=== PATIENT | female | born 1935 | race Caucasian/White ===

== ENCOUNTER 2021-08-14 09:33 | Inpatient (IN) | payer MEDICARE, SELFPAY ==
[2021-08-14] VITALS (9 sets, daily range): BP systolic 108–208; BP diastolic 69–103; PULSE 52–88; RESP 14–18; TEMP 36.4–37.2; O2SAT 94–98; BMI 22.6
--- NOTE | 2021-08-14 09:43 | CT_ITS ---
WS: [id number] CT HEAD NONCONTRAST HISTORY: Symptoms of Acute Stroke TECHNIQUE: Contiguous axial imaging performed through the brain in 2.5 mm imaging. Bone and soft tiss ue windows. Sagittal and coronal reformats reviewed. All CT scans at [facility] use at least one of these dose optimization techniques: automated exposure control; mA and/or kV adjustment per pa tient size (includes targeted exams where dose is matched to clinical indication); or iterative recon struction. DLP: 805.23 mGy.cm COMPARISON: None available. No acute intracranial hemorrhage, midline shift or mass effect. Mild bilateral atrophy. There is also cerebellar atrophy. There are numerous lacunar infarcts bilater ally and small vessel ischemic disease. No area of sulcal effacement or acute infarct identified. Sma ll infarcts would be difficult to visualize amongst the chronic disease. There are also numerous lacu ankit infarcts in the insular ribbons bilaterally. Ventricles: Ventricles are mildly and diffusely dilated. Paranasal sinuses: As visualized are clear. Mastoid air cells: Well pneumatized. Calvarium and scalp: Skull is intact with no soft tissue edema or swelling. CT/CT head wo con* [id number] IMPRESSION: 1. No acute intracranial hemorrhage or edema. 2. 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 3. Mild ventriculomegaly. Notified Dr. Kolb at 08/14/2021 10:19 AM.
--- NOTE | 2021-08-14 09:43 | XR_ITS ---
WS: [id number] Portable AP semiupright chest, 08/14/2021 Clinical Data: cp Comparison: None. Findings: No nodules, masses or effusions are seen. The heart is normal. The aortic arch and descendi ng thoracic aorta show calcification and tortuosity. No pneumonia or pneumothorax is present. The pul monary vascularity is not increased. There is a dextroscoliosis of the thoracic spine. There are old right sixth or seventh rib fractures and old left fourth through ninth rib fractures. XR/XR chest 1V portable [id number] Impression: Atherosclerosis.
--- NOTE | 2021-08-14 09:43 | ECG_ITS ---
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 Measurements Intervals [place]bee Rate: 60 P: -2 NV: 171 QRS: 33 QRSD: 105 T: 267 QT: 449 QTc: 451 Interpretive Statements SINUS RHYTHM LEFT VENTRICULAR HYPERTROPHY AND ST-T CHANGE [VOLTAGE CRITERIA PLUS ST/T ABNORMALITY] POSSIBLE SEPTAL MYOCARDIAL INFARCTION , OF INDETERMINATE AGE [30 ms Q WAVE IN V1/V2] No previous ECG available for comparison Electronically Signed On 08-14-2021 16:17:14 CDT by Mora Salazar M.D. [id number]
--- NOTE | 2021-08-14 09:46 | W.ED.WEAKNES ---
Documented by User: Apurva Pandey 08/14/21 09:51 HPI - Weakness General: Chief complaint: Neuro Symptoms/Deficit Stated complaint: STROKE/ SLURRED SPEECH/ WEAKNESS Time Seen by Provider: 08/14/21 09:35 History of Present Illness: 86-year-old female patient presents to the emergency department with slurred speech and weakness to her right side. Patient states she is unable to ambulate due to her right leg weakness and right arm weakness. Patient states the symptoms started about 730 yesterday morning and have not improved. Patient states she has past medical history of TIA. Patient is not on any blood thinners. Patient denies any chest pain or shortness of breath. Patient denies any difficulty swallowing. Associated symptoms: Denies chest pain, chills, confusion, diaphoresis, dysuria, easy bruising, fever(s), headache(s), nausea, syncope or vomiting Review of Systems Narrative: Patient complains of right sided weakness in her upper and lower extremity. Patient complains of slurred speech Const: Denies: fever(s), chills, body aches, change in appetite, change in weight, fatigue, malaise or diaphoresis Eyes: Denies: change in vision, blurry vision, blind spots, photophobia, eye discomfort, eye discharge, eye redness, floaters or seeing flashes ENMT: Denies: throat pain, uvular edema, enlarged tonsils, odynophagia, hoarseness, mouth pain, swelling of lips/tongue, oral sores, bleeding gums, dental pain, dry mouth, ear or mastoid pain, ear discharge, change in hearing, tinnitus, disequilibrium, nasal discharge, nasal congestion, post nasal drip or sinus pain Card: Denies: chest pain, palpitations, irregular heart rhythm, edema, swelling of feet/ankles, lightheadedness, syncope, pre-syncope, dyspnea on exertion, orthopnea, leg pain with exertion or acrocyanosis Resp: Denies: dyspnea, productive cough, non-productive cough, wheezing, stridor, pain on inspiration, change in phlegm color, hemoptysis or chest congestion GI: Denies: abdominal pain, nausea, vomiting, hematemesis, dysphagia, diarrhea, constipation, GI cramping, change in bowel habits or rectal pain : Denies: flank pain, difficulty voiding, dysuria, urinary frequency, urinary urgency, urinary hesitancy or hematuria Musc: Denies: neck pain, back pain, extremity pain, extremity swelling, joint pain, joint swelling, joint redness, joint warmth or deformity Skin/Breast: Denies: rash, pruritus, erythema, sores, new lesions, changes in skin color or dry skin Neuro: Denies: headache(s), sensory changes, lack of coordination, frequent falls, dizziness, vertigo, confusion, behavioral changes, difficulty communicating thoughts or seizure-like activity Psych: Denies: anxiety, depression, suicidal ideation or homicidal ideation Endo: Denies: polyuria, polydipsia, tired all the time, cold intolerance, excessive sweating, flushing, hot flashes or heat intolerance Albert/Lymph: Denies: easy bruising, easy bleeding, petechiae, purpura, enlarged lymph nodes or tender lymph nodes All/Imm: Denies: urticaria, throat swelling, tongue swelling, facial swelling, acute wheezing or itchy eyes PFSH ED PFSH: Medical History (Updated 08/14/21 @ 12:54 by Anna Bailey MD) HTN (hypertension) Smoker TIA (transient ischemic attack) Surgical History (Updated 08/14/21 @ 12:54 by Anna Bailey MD) H/O carotid endarterectomy Family History (Updated 08/14/21 @ 12:55 by Anna Bailey MD) Denies family history of Clotting disorder Cancer Social History Smoking and tobacco status: current every day smoker cigarettes Alcohol intake: never Substance/Drug Use: never Lives independently: Yes Physical Exam Const: COMMON NORMALS: no acute distress, average body habitus, patient oriented x3, no limitations, healthy appearing, alert and well nourished HENMT: COMMON NORMALS: normocephalic, atraumatic, hearing grossly normal bilaterally, external ears normal, EAC's normal, TM's normal bilaterally, Normal external nose present, moist oral mucous membranes, oropharynx normal and dentition normal HEAD & SCALP: normocephalic and atraumatic NOSE: Normal external nose present EXTERNAL EAR: Yes external ears normal EXTERNAL AUDITORY CANAL: EAC's normal TYMPANIC MEMBRANE: TM's normal bilaterally THROAT: no uvular edema Eye: COMMON NORMALS: Equal, round and reactive pupils present, EOMs intact bilaterally, conjunctivae normal and no scleral icterus CONJUNCTIVA: Yes conjunctivae normal PUPIL: Yes Equal, round and reactive pupils present Neck/C-Spine: COMMON NORMALS: full ROM, no lymphadenopathy, supple, no meningeal signs, no JVD, Thyroid normal and No carotid bruits THYROID: Thyroid normal Chest: COMMONS NORMALS: normal inspection of the chest and normal palpation of entire chest wall Cardio: COMMON NORMALS: no JVD, regular rate and regular rhythm RATE: regular rate RHYTHM: regular rhythm GI: COMMON NORMALS: Normal to inspection, nondistended, normoactive bowel sounds present, Soft to palpation and non-tender PALPATION: Yes Soft to palpation : COMMON NORMALS: Yes no CVA tenderness BLADDER/KIDNEY EXAM: Yes no CVA tenderness Back/Pelvis: COMMON NORMALS: no CVA tenderness, thoracic and lumbar spine normal to inspection, no thoracic nor lumbar tenderness and thoraco-lumbar ROM normal Neuro: COMMON NORMALS: patient oriented x3 SENSORIUM/ORIENTATION: Yes alert MENINGEAL SIGNS: Yes no meningeal signs CRANIAL NERVES: Yes CN VII (facial) Laterality: right COORDINATION/BALANCE: No lvqsbi-dj-uics test normal, No uqso-nz-vcmx test normal and No tandem gait normal SPEECH: abnormal speech Details: slurred MOTOR EXAM: Pronator motor function present pronator drift of right upper extremity and Abnormal muscle tone present COORDINATION: jcxqnk-vg-ftel test abnormal, bzyq-nr-cbsw test abnormal and tandem gait abnormal Psych: COMMON NORMALS: mental status grossly normal, Normal thought process present, cooperative, normal affect, denies hallucinations, denies homicidal ideation and denies suicidal ideation THOUGHT PROCESS: Normal thought process present Course Vital Signs: Vital signs: Vital Signs Pulse Rate 66 08/14/21 09:42 Respiratory Rate 14 08/14/21 09:42 Blood Pressure 171/91 08/14/21 09:42 Pulse Oximetry 97 08/14/21 09:42 MDM - Weakness Lab Data : 08/14/21 10:13 08/14/21 10:13 Radiology Impressions Chest X-Ray 08/14/21 09:43 Impression: Atherosclerosis. Head CT 08/14/21 09:43 IMPRESSION: 1. No acute intracranial hemorrhage or edema. 2. 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 3. Mild ventriculomegaly. Notified Dr. Kolb at 08/14/2021 10:19 AM. Laboratory Results WBC 6.6 10^3/uL (4.0-10.0) 08/14/21 10:13 RBC 3.83 10^6/uL (4.1-5.3) L 08/14/21 10:13 Hgb 11.7 g/dL (11.5-15.3) 08/14/21 10:13 Hct 35.7 % (37.0-47.0) L 08/14/21 10:13 MCV 93.2 fl (81-99) 08/14/21 10:13 MCH 30.5 pg (28.0-34.0) 08/14/21 10:13 MCHC 32.8 g/dL (30.0-36.0) 08/14/21 10:13 RDW 12.9 % (12.1-15.1) 08/14/21 10:13 Plt Count 179 10^3/cmm (130-400) 08/14/21 10:13 MPV 9.5 fL (7.4-10.4) 08/14/21 10:13 Neut % (Auto) 67.1 % 08/14/21 10:13 Lymph % (Auto) 23.7 % 08/14/21 10:13 [place] % (Auto) 7.6 % 08/14/21 10:13 Eos % (Auto) 0.5 % 08/14/21 10:13 Baso % (Auto) 0.9 % 08/14/21 10:13 Neut # (Auto) 4.43 10^3/uL (1.8-7.7) 08/14/21 10:13 Lymph # (Auto) 1.6 10^3/uL (0.8-4.8) 08/14/21 10:13 [place] # (Auto) 0.5 10^3/uL (0.2-0.9) 08/14/21 10:13 Eos # (Auto) 0.0 10^3/uL (0.0-0.8) 08/14/21 10:13 Baso # (Auto) 0.1 10^3/uL (0.0-0.1) 08/14/21 10:13 Nucleated RBC % (auto) 0 % 08/14/21 10:13 Nucleated RBCs # 0.0 /100WBC 08/14/21 10:13 PT 14.50 SECONDS (12.1-14.9) 08/14/21 10:13 INR 1.09 (0.8-1.2) 08/14/21 10:13 APTT 33.7 SECONDS (23.9-36.7) 08/14/21 10:13 Sodium 138 mmol/L (136-145) 08/14/21 10:13 Potassium 2.7 mmol/L (3.5-5.1) L* 08/14/21 10:13 Chloride 99 mmol/L (98-107) 08/14/21 10:13 Carbon Dioxide 30 mmol/L (22-29) H 08/14/21 10:13 Anion Gap 11.7 (5-19) 08/14/21 10:13 BUN 9 mg/dL (8-23) 08/14/21 10:13 Creatinine 0.5 mg/dL (0.5-0.9) 08/14/21 10:13 GFR Calculation Not Reportable 08/14/21 10:13 Glucose 103 mg/dL (65-115) 08/14/21 10:13 POC Glucose 105 mg/dL (70-110) 08/14/21 10:11 Calculated Osmolality 285 mOsm/kg (285-295) 08/14/21 10:13 Calcium 8.8 mg/dL (8.5-10.5) 08/14/21 10:13 Total Bilirubin 0.5 mg/dL (0.15-1.2) 08/14/21 10:13 AST 15 U/L (0-32) 08/14/21 10:13 ALT 10 U/L (0-33) 08/14/21 10:13 Alkaline Phosphatase 82 IU/L (35-105) 08/14/21 10:13 Troponin T Baseline 20 ng/L (0-10) H 08/14/21 10:13 Total Protein 6.5 g/dL (6.6-8.7) L 08/14/21 10:13 Albumin 3.5 g/dL (3.5-5.2) 08/14/21 10:13 Globulin 3.0 g/dL (1.3-4.6) 08/14/21 10:13 Urine Color Yellow (Yellow) 08/14/21 11:08 Urine Appearance Hazy (CLEAR) A 08/14/21 11:08 Urine pH 6 (5-7) 08/14/21 11:08 Ur Specific [place] 1.015 (1.005-1.030) 08/14/21 11:08 Urine Protein Neg (Negative) 08/14/21 11:08 Urine Glucose (UA) Norm (Normal) 08/14/21 11:08 Urine Ketones Negative (Negative) 08/14/21 11:08 Urine Blood Neg (Negative) 08/14/21 11:08 Urine Nitrate Negative (Negative) 08/14/21 11:08 Urine Bilirubin Neg (Negative) 08/14/21 11:08 Urine Urobilinogen Norm mg/dL (Negative) 08/14/21 11:08 Ur Leukocyte Esterase Negative (Negative) 08/14/21 11:08 Discharge Plan Discharge Patient Disposition: Admitted As Inpatient Admit Provider: Anna Bailey Clinical Impression: Cerebrovascular accident, Hypokalemia Condition: Stable Coding Level of Care Code ED Buffing Line Set Up Worker for Chg Fwd Exam Comprehensive Documented by User: Barrington Kolb DO 08/14/21 12:59 HPI - Weakness General: Chief complaint: Neuro Symptoms/Deficit Stated complaint: STROKE/ SLURRED SPEECH/ WEAKNESS Time Seen by Provider: 08/14/21 09:35 PFS ED PFSH: Medical History (Updated 08/14/21 @ 12:54 by Anna Bailey MD) HTN (hypertension) Smoker TIA (transient ischemic attack) Surgical History (Updated 08/14/21 @ 12:54 by Anna Bailey MD) H/O carotid endarterectomy Family History (Updated 08/14/21 @ 12:55 by Anna Bailey MD) Denies family history of Clotting disorder Cancer Social History Smoking and tobacco status: current every day smoker cigarettes Alcohol intake: never Substance/Drug Use: never Lives independently: Yes Course Vital Signs: Vital signs: Vital Signs Pulse Rate 66 08/14/21 09:42 Respiratory Rate 14 08/14/21 09:42 Blood Pressure 171/91 08/14/21 09:42 Pulse Oximetry 97 08/14/21 09:42 MDM - Weakness Medical Decision Making Patient seen in conjunction with Apurva Bell. She is presenting with severe right-sided deficits that is quite dense including face right arm and leg with ataxia and dysarthria and some mild aphasia. Her stroke score is 13. Unfortunately she is out of any window for intervention. We will admit her for evaluation for secondary measures as well as therapy. Suspect patient will require rehab to recover. she is also significantly hypokalemic potassium supplement ordered. Discussed with family members. Orders written also discussed with hospitalist. Medical Records I reviewed the patient's medical records. Lab Data I reviewed the patient's lab results. : 08/14/21 10:13 08/14/21 10:13 Radiology Impressions Chest X-Ray 08/14/21 09:43 Impression: Atherosclerosis. Head CT 08/14/21 09:43 IMPRESSION: 1. No acute intracranial hemorrhage or edema. 2. 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 3. Mild ventriculomegaly. Notified Dr. Kolb at 08/14/2021 10:19 AM. Laboratory Results WBC 6.6 10^3/uL (4.0-10.0) 08/14/21 10:13 RBC 3.83 10^6/uL (4.1-5.3) L 08/14/21 10:13 Hgb 11.7 g/dL (11.5-15.3) 08/14/21 10:13 Hct 35.7 % (37.0-47.0) L 08/14/21 10:13 MCV 93.2 fl (81-99) 08/14/21 10:13 MCH 30.5 pg (28.0-34.0) 08/14/21 10:13 MCHC 32.8 g/dL (30.0-36.0) 08/14/21 10:13 RDW 12.9 % (12.1-15.1) 08/14/21 10:13 Plt Count 179 10^3/cmm (130-400) 08/14/21 10:13 MPV 9.5 fL (7.4-10.4) 08/14/21 10:13 Neut % (Auto) 67.1 % 08/14/21 10:13 Lymph % (Auto) 23.7 % 08/14/21 10:13 [place] % (Auto) 7.6 % 08/14/21 10:13 Eos % (Auto) 0.5 % 08/14/21 10:13 Baso % (Auto) 0.9 % 08/14/21 10:13 Neut # (Auto) 4.43 10^3/uL (1.8-7.7) 08/14/21 10:13 Lymph # (Auto) 1.6 10^3/uL (0.8-4.8) 08/14/21 10:13 [place] # (Auto) 0.5 10^3/uL (0.2-0.9) 08/14/21 10:13 Eos # (Auto) 0.0 10^3/uL (0.0-0.8) 08/14/21 10:13 Baso # (Auto) 0.1 10^3/uL (0.0-0.1) 08/14/21 10:13 Nucleated RBC % (auto) 0 % 08/14/21 10:13 Nucleated RBCs # 0.0 /100WBC 08/14/21 10:13 PT 14.50 SECONDS (12.1-14.9) 08/14/21 10:13 INR 1.09 (0.8-1.2) 08/14/21 10:13 APTT 33.7 SECONDS (23.9-36.7) 08/14/21 10:13 Sodium 138 mmol/L (136-145) 08/14/21 10:13 Potassium 2.7 mmol/L (3.5-5.1) L* 08/14/21 10:13 Chloride 99 mmol/L (98-107) 08/14/21 10:13 Carbon Dioxide 30 mmol/L (22-29) H 08/14/21 10:13 Anion Gap 11.7 (5-19) 08/14/21 10:13 BUN 9 mg/dL (8-23) 08/14/21 10:13 Creatinine 0.5 mg/dL (0.5-0.9) 08/14/21 10:13 GFR Calculation Not Reportable 08/14/21 10:13 Glucose 103 mg/dL (65-115) 08/14/21 10:13 POC Glucose 105 mg/dL (70-110) 08/14/21 10:11 Calculated Osmolality 285 mOsm/kg (285-295) 08/14/21 10:13 Calcium 8.8 mg/dL (8.5-10.5) 08/14/21 10:13 Total Bilirubin 0.5 mg/dL (0.15-1.2) 08/14/21 10:13 AST 15 U/L (0-32) 08/14/21 10:13 ALT 10 U/L (0-33) 08/14/21 10:13 Alkaline Phosphatase 82 IU/L (35-105) 08/14/21 10:13 Troponin T Baseline 20 ng/L (0-10) H 08/14/21 10:13 Total Protein 6.5 g/dL (6.6-8.7) L 08/14/21 10:13 Albumin 3.5 g/dL (3.5-5.2) 08/14/21 10:13 Globulin 3.0 g/dL (1.3-4.6) 08/14/21 10:13 Urine Color Yellow (Yellow) 08/14/21 11:08 Urine Appearance Hazy (CLEAR) A 08/14/21 11:08 Urine pH 6 (5-7) 08/14/21 11:08 Ur Specific [place] 1.015 (1.005-1.030) 08/14/21 11:08 Urine Protein Neg (Negative) 08/14/21 11:08 Urine Glucose (UA) Norm (Normal) 08/14/21 11:08 Urine Ketones Negative (Negative) 08/14/21 11:08 Urine Blood Neg (Negative) 08/14/21 11:08 Urine Nitrate Negative (Negative) 08/14/21 11:08 Urine Bilirubin Neg (Negative) 08/14/21 11:08 Urine Urobilinogen Norm mg/dL (Negative) 08/14/21 11:08 Ur Leukocyte Esterase Negative (Negative) 08/14/21 11:08 Discharge Plan Discharge Patient Disposition: Admitted As Inpatient Admit Provider: Anna Bailey Clinical Impression: Cerebrovascular accident, Hypokalemia Condition: Stable Coding Level of Care Code ED Buffing Line Set Up Worker for Sherry Fwnate Exam Comprehensive NIH stroke score NIHSS Level Of Consciousness - 1a: 0 Level Of Consciousness Questions - 1b: Both Correct Level Of Consciousness Commands - 1c: Both Correct Best Gaze - 2: Normal Visual Cui - 3: No Visual Loss Facial Palsy - 4: Partial Paralysis Motor Arm Right - 5: No Effort Against [place] Motor Arm Left - 5: No Drift Motor Leg Right - 6: No Effort Against [place] Motor Leg Left - 6: No Drift Limb Ataxia - 7: Present In Two Limbs Sensory - 8: Mild To Moderate Loss Best Language - 9: Mild/Moderate Aphasia Dysarthia - 10: Mild/Moderate Dysarthia Extinction And Inattention - 11: 0 Score Total Score: 13
--- NOTE | 2021-08-14 10:17 | PC.NURSE ---
pt placed on continuous spo2, nibp, and cm.
--- NOTE | 2021-08-14 10:17 | PC.NURSE ---
pt is npo. pt hob placed oat greater than 30 degrees.
[2021-08-14 10:34] LABS: Basophils # 0.1 10^3/uL (0.0-0.1); Basophils % 0.9 %; Eosinophils % 0.5 %; Hematocrit 35.7 % (37.0-47.0); Hemoglobin 11.7 g/dL (11.5-15.3); Lymphocytes # 1.6 10^3/uL (0.8-4.8); Lymphocytes % 23.7 %; Mean Corpuscular HGB Conc 32.8 g/dL (30.0-36.0); Mean Corpuscular Hemoglobin 30.5 pg (28.0-34.0); Mean Corpuscular Volume 93.2 fl (81-99); Mean Platelet Volume 9.5 fL (7.4-10.4); Monocytes # 0.5 10^3/uL (0.2-0.9); Monocytes % 7.6 %; Neutrophils # 4.43 10^3/uL (1.8-7.7); Neutrophils % 67.1 %; Nucleated Red Blood Cells % 0 %; Platelet Count 179 10^3/cmm (130-400); Red Blood Count 3.83 10^6/uL (4.1-5.3); Red Cell Distribution Width 12.9 % (12.1-15.1); White Blood Count 6.6 10^3/uL (4.0-10.0)
[2021-08-14 10:34] LABS: Glucose Point of Care 105 mg/dL (70-110)
[2021-08-14 10:52] LABS: INR 1.09 (0.8-1.2)
[2021-08-14 10:53] LABS: Partial Thromboplastin Time 33.7 SECONDS (23.9-36.7)
[2021-08-14 10:54] LABS: Alanine Aminotransferase 10 U/L (0-33); Albumin Level 3.5 g/dL (3.5-5.2); Alkaline Phosphatase 82 IU/L (35-105); Anion Gap 11.7 (5-19); Aspartate Amino Transferase 15 U/L (0-32); Blood Urea Nitrogen 9 mg/dL (8-23); Calcium 8.8 mg/dL (8.5-10.5); Carbon Dioxide 30 mmol/L (22-29); Chloride 99 mmol/L (98-107); Creatinine Clr Calc Pharmacy 50.3942; Glucose 103 mg/dL (65-115); Osmolality Calculated 285 mOsm/kg (285-295); Sodium 138 mmol/L (136-145); Total Bilirubin 0.5 mg/dL (0.15-1.2); Total Protein 6.5 g/dL (6.6-8.7)
[2021-08-14 10:55] LABS: Troponin(5th) Baseline 20 ng/L (0-10)
[2021-08-14 10:56] LABS: Potassium 2.7 mmol/L (3.5-5.1)
[2021-08-14 11:28] LABS: Add Urine Microscopic? NO; Charge for UA Resulting for Rev
--- NOTE | 2021-08-14 11:30 | PC.PHAR ---
PT UNABLE TO VERIFY MEDICATIONS-PTS FAMILY BROUGHT IN MEDICATION BOTTLES SOME DATED 12/31/2020 AND 11/21/2020-MEDICATIONS ENTERED ARE FROM THE MED BOTTLES BROUGHT IN AND EXT MED HISTORY-PT STATES SHE USE TO TAKE A 81MG ASPIRIN BUT STATES NO LONGER TAKES- NOTES ARE MADE IN THE PHARMACY COMMENTS
[2021-08-14 11:42] LABS: Bilirubin Urine Neg (Negative); Blood Urine Neg (Negative); Glucose Urine UA Norm (Normal); Ketones Urine Negative (Negative); Leukocyte Esterase Urine Negative (Negative); Nitrate Urine Negative (Negative); Protein Urine Neg (Negative); Specific Gravity, Urine 1.015 (1.005-1.030); Urine Appearance Hazy (CLEAR); Urine Color Yellow (Yellow); Urobilinogen Urine Norm (Negative); pH Urine 6 (5-7)
--- NOTE | 2021-08-14 11:51 | W.ED.NEUROSD ---
HPI - Neuro Symptoms/Deficit General: Chief Complaint: Neuro Symptoms/Deficit Stated Complaint: STROKE/ SLURRED SPEECH/ WEAKNESS Time Seen by Provider: 08/14/21 09:35 Source: patient and family Mode of arrival: EMS History of Present Illness: 86-year-old female presents emergency room with right-sided weakness and slurred speech. Patient's deficits are profound and dense to have been present for the last 26 hours approximately. In questioning signs are with the patient today may have a been even longer than that they are assuming they began yesterday morning but there is no one that can confirm that she woke up normal and then developed the symptoms as possible they may have developed overnight they do believe to the best of her knowledge she was normal when she went to bed they are just unsure if the symptoms began after she woke up or not. Patient is not able to really categorize this for us. She denies any chest pain. She has significant dysarthria and mild aphasia. Her NIH score is 16. She is outside any window for thrombolytics or embolectomy. In talking to the patient and the son's evidently approximately week and half to 2 weeks ago she had a TIA and was seen at another local hospital. She has not been taking any antiplatelet therapy or statin at this point. Onset (ago): hour(s) (26) Location: speech, right face, right arm, right leg and ataxia History of same: No Severity: severe Quality: weak Relieving factors: none Exacerbating factors: none On Anticoagulants: No Associated symptoms: Deny chest pain, cough, diaphoresis, fevers/chills, headache(s), anorexia, malaise, nausea, seizures, short of breath, syncope, tingling, vertigo, vomiting or weakness Treatments Prior to Arrival: none Review of Systems Const: Denies: fever(s), chills, body aches, malaise or diaphoresis ENMT: Denies: throat pain, ear or mastoid pain, nasal discharge or nasal congestion Card: Denies: chest pain, palpitations, irregular heart rhythm, edema or syncope Resp: Denies: dyspnea, productive cough or non-productive cough GI: Denies: abdominal pain, nausea or vomiting : Denies: flank pain, difficulty voiding, dysuria, urinary frequency or urinary urgency Skin/Breast: Denies: rash or pruritus Neuro: Denies: headache(s) or vertigo PFS ED PFSH: Medical History HTN (hypertension) Smoker TIA (transient ischemic attack) Surgical History H/O carotid endarterectomy Family History Denies family history of Clotting disorder Cancer Social History Smoking and tobacco status: current every day smoker cigarettes Alcohol intake: never Substance/Drug Use: never Lives independently: Yes NIH stroke score NIHSS: Level Of Consciousness - 1a: 1 Level Of Consciousness Questions - 1b: One Correct Level Of Consciousness Commands - 1c: Both Correct Best Gaze - 2: Normal Visual Cui - 3: No Visual Loss Facial Palsy - 4: Partial Paralysis Motor Arm Right - 5: No Effort Against [place] Motor Arm Left - 5: No Drift Motor Leg Right - 6: No Effort Against [place] Motor Leg Left - 6: No Drift Limb Ataxia - 7: Present In Two Limbs Sensory - 8: Mild To Moderate Loss Best Language - 9: Mild/Moderate Aphasia Dysarthia - 10: Severe Dysarthia Extinction And Inattention - 11: 0 Score: Total Score: 16 Course Vital Signs: Vital signs: Vital Signs Temperature 99.2 F 08/15/21 15:08 Pulse Rate 76 08/15/21 15:08 Respiratory Rate 18 08/15/21 15:08 Blood Pressure 167/77 08/15/21 15:08 Pulse Oximetry 94 08/15/21 15:08 MDM - Neuro Symptoms/Deficit Medical Decision Making 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 Will admit for further evaluation and secondary prevention as well as initiation of therapies. Medical Records I reviewed the patient's medical records. Lab Data I reviewed the patient's lab results. : 08/14/21 10:13 08/15/21 04:15 Radiology Impressions Chest X-Ray 08/14/21 09:43 Impression: Atherosclerosis. Head CT 08/14/21 09:43 IMPRESSION: 1. No acute intracranial hemorrhage or edema. 2. 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 3. Mild ventriculomegaly. Notified Dr. Kolb at 08/14/2021 10:19 AM. Carotid Doppler Study 08/15/21 06:00 IMPRESSION: Elevated flow velocity within the distal left internal carotid artery that could reflect underlying stenosis between 50 and 69%; however, the ICA to CCA ratio is normal. Consider CTA to better characterize. REFERENCES: SRU CRITERIA. The degree of internal carotid artery stenosis is based on criteria defined by the Society of Radiologists in Ultrasound (SRU). Normal is no stenosis. Mild is less than 50% stenosis. Moderate is 50-69% stenosis. Severe is greater than 69% stenosis to near occlusion. Near occlusion is a markedly narrowed lumen. Total occlusion is no detectable patent lumen. 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 THIS REPORT CONTAINS FINDINGS THAT MAY BE CRITICAL TO PATIENT CARE. The findings were verbally communicated via telephone conference with ABIGAIL, IMPRESSION: Bilateral carotid endarterectomy. Moderate stenosis at the origin of the right internal carotid artery. COMMENTS: Consistent with the [employer]'s Incidental Findings Committee white paper (J Am Andrea Radiol 2015): In patients aged 35 years and older with an incidental thyroid nodule equal to or greater than 1.[address], MRI or extrathyroidal US, further evaluation with dedicated thyroid US is recommended for patients with normal life expectancy and without comorbidities. For smaller nodules without suspicious features, no further evaluation or follow up is recommended. REFERENCES: NASCET CRITERIA. The degree of internal carotid artery stenosis is based on NASCET criteria. Normal is no stenosis. Mild is less than 50% stenosis. Moderate is 50-69% stenosis. Severe is 70% to 99% stenosis. Total occlusion is no detectable patent lumen. Laboratory Results WBC 6.6 10^3/uL (4.0-10.0) 08/14/21 10:13 RBC 3.83 10^6/uL (4.1-5.3) L 08/14/21 10:13 Hgb 11.7 g/dL (11.5-15.3) 08/14/21 10:13 Hct 35.7 % (37.0-47.0) L 08/14/21 10:13 MCV 93.2 fl (81-99) 08/14/21 10:13 MCH 30.5 pg (28.0-34.0) 05/20/22 10:13 MCHC 32.8 g/dL (30.0-36.0) 08/14/21 10:13 RDW 12.9 % (12.1-15.1) 08/14/21 10:13 Plt Count 179 10^3/cmm (130-400) 08/14/21 10:13 MPV 9.5 fL (7.4-10.4) 08/14/21 10:13 Neut % (Auto) 67.1 % 08/14/21 10:13 Lymph % (Auto) 23.7 % 08/14/21 10:13 [place] % (Auto) 7.6 % 08/14/21 10:13 Eos % (Auto) 0.5 % 08/14/21 10:13 Baso % (Auto) 0.9 % 08/14/21 10:13 Neut # (Auto) 4.43 10^3/uL (1.8-7.7) 08/14/21 10:13 Lymph # (Auto) 1.6 10^3/uL (0.8-4.8) 08/14/21 10:13 [place] # (Auto) 0.5 10^3/uL (0.2-0.9) 08/14/21 10:13 Eos # (Auto) 0.0 10^3/uL (0.0-0.8) 08/14/21 10:13 Baso # (Auto) 0.1 10^3/uL (0.0-0.1) 08/14/21 10:13 Nucleated RBC % (auto) 0 % 08/14/21 10:13 Nucleated RBCs # 0.0 /100WBC 08/14/21 10:13 PT 14.50 SECONDS (12.1-14.9) 08/14/21 10:13 INR 1.09 (0.8-1.2) 08/14/21 10:13 APTT 33.7 SECONDS (23.9-36.7) 08/14/21 10:13 Sodium 138 mmol/L (136-145) 08/14/21 10:13 Potassium 2.7 mmol/L (3.5-5.1) L* 08/14/21 10:13 Chloride 99 mmol/L (98-107) 08/14/21 10:13 Carbon Dioxide 30 mmol/L (22-29) H 08/14/21 10:13 Anion Gap 11.7 (5-19) 08/14/21 10:13 BUN 9 mg/dL (8-23) 08/14/21 10:13 Creatinine 0.5 mg/dL (0.5-0.9) 08/14/21 10:13 GFR Calculation Not Reportable 08/14/21 10:13 Glucose 103 mg/dL (65-115) 08/14/21 10:13 POC Glucose 105 mg/dL (70-110) 08/14/21 10:11 Calculated Osmolality 285 mOsm/kg (285-295) 08/14/21 10:13 Calcium 8.8 mg/dL (8.5-10.5) 08/14/21 10:13 Total Bilirubin 0.5 mg/dL (0.15-1.2) 08/14/21 10:13 AST 15 U/L (0-32) 08/14/21 10:13 ALT 10 U/L (0-33) 08/14/21 10:13 Alkaline Phosphatase 82 IU/L (35-105) 08/14/21 10:13 Troponin T Baseline 20 ng/L (0-10) H 08/14/21 10:13 Troponin T 120 Minute 19.04 ng/L (0-10) H 08/14/21 12:13 Delta Troponin T -0.96 ABS# (0-10) L 08/14/21 12:13 Total Protein 6.5 g/dL (6.6-8.7) L 08/14/21 10:13 Albumin 3.5 g/dL (3.5-5.2) 08/14/21 10:13 Globulin 3.0 g/dL (1.3-4.6) 08/14/21 10:13 Urine Color Yellow (Yellow) 08/14/21 11:08 Urine Appearance Hazy (CLEAR) A 08/14/21 11:08 Urine pH 6 (5-7) 08/14/21 11:08 Ur Specific [place] 1.015 (1.005-1.030) 08/14/21 11:08 Urine Protein Neg (Negative) 08/14/21 11:08 Urine Glucose (UA) Norm (Normal) 08/14/21 11:08 Urine Ketones Negative (Negative) 08/14/21 11:08 Urine Blood Neg (Negative) 08/14/21 11:08 Urine Nitrate Negative (Negative) 08/14/21 11:08 Urine Bilirubin Neg (Negative) 08/14/21 11:08 Urine Urobilinogen Norm mg/dL (Negative) 08/14/21 11:08 Ur Leukocyte Esterase Negative (Negative) 08/14/21 11:08 Discharge Plan Discharge Patient Disposition: Admitted As Inpatient Admit Provider: Anna Bailey Clinical Impression: Cerebrovascular accident, Hypokalemia Condition: Stable Coding Level of Care Code 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
[2021-08-14] MEDS: potassium chloride premix 100 ML 50 MEQ IV (12:12)
[2021-08-14 12:43] LABS: Troponin 5 2HR 19.04 ng/L (0-10)
--- NOTE | 2021-08-14 12:46 | PC.NURSE ---
ATTEMPTED REPORT NURSE UNAVAILABLE.
[2021-08-14 12:47] LABS: Troponin 5 2HR Delta -0.96 ABS# (0-10)
--- NOTE | 2021-08-14 12:52 | PM.HP ---
Providers/Chief Complaint Admitting Physician: Anna Bailey MD Chief Complaint: STROKE/ SLURRED SPEECH/ WEAKNESS History of Present Illness Brianne Fajardo is a 86 year old female who lives alone presented today with chief complaint of facial droop and right-sided weakness. Sons are at the bedside who are stating that her symptoms were noted by her sister who lives across the street around 7:30 AM yesterday. Patient is endorsing waking up with these symptoms. She went to the bed day before yesterday without any symptoms. When her sister called her nephew's they noticed severe weakness of right side and facial droop and requested EMS. Patient is stating that she has been falling for last few months she is using cane for ambulation, she does have a helper at home who would visit her frequently. Her sister would cook for her. She is not endorsing loss of bladder or bowel control. She is denying chest pain, shortness of breath, fever, nausea and vomiting. In the ER and she has been diagnosed with acute CVA CT head unremarkable,NIH 11 Not a tPA candidate Hospice services requested to find her placement as she is unsafe to return home PT/OT/ST Review of Systems Const: Denies: fever(s) Eyes: Denies: change in vision ENMT: Denies: throat pain Card: Denies: chest pain Resp: Denies: dyspnea GI: Denies: abdominal pain : Denies: flank pain Musc: Denies: neck pain Skin/Breast: Denies: rash Neuro: Reports: weakness in extremities, difficulty walking, frequent falls and Slurred speech present Psych: Denies: anxiety Endo: Denies: polyuria Albert/Lymph: Denies: easy bruising Medications/Allergies Home Medications Medication Instructions Recorded Confirmed Last Taken Type diltiazem HCl 120 mg 120 mg PO DAILY 08/14/21 08/14/21 Unknown History capsule,extended release 24 hr hydrochlorothiazide 12.5 mg tablet 12.5 mg PO DAILY 08/14/21 08/14/21 Unknown History metoprolol succinate 100 mg 100 mg PO DAILY 08/14/21 08/14/21 Unknown History tablet,extended release 24 hr potassium chloride 20 mEq 20 meq PO DAILY 08/14/21 08/14/21 Unknown History tablet,extended release(part/cryst) sertraline 100 mg tablet 100 mg PO DAILY 08/14/21 08/14/21 Unknown History Allergies Allergy/AdvReac Type Severity Reaction Status Date / Time No Known Allergies Allergy Verified 08/14/21 11:26 PFSH Acute PFSH: Medical History (Updated 08/14/21 @ 12:54 by Anna Bailey MD) HTN (hypertension) Smoker TIA (transient ischemic attack) Surgical History (Updated 08/14/21 @ 12:54 by Anna Bailey MD) H/O carotid endarterectomy Family History (Updated 08/14/21 @ 12:55 by Anna Bailey MD) Denies family history of Clotting disorder Cancer Social History (Updated 08/14/21 @ 12:55 by Anna Bailey MD) Smoking and tobacco status: current every day smoker cigarettes Alcohol intake: never Substance/Drug Use: never Lives independently: Yes Vitals/I&O/Wt Last Vital Signs Pulse 66 08/14/21 09:42 Resp 14 08/14/21 09:42 BP 171/91 08/14/21 09:42 Pulse Ox 97 08/14/21 09:42 Weight last 48 hrs Weight 63.503 kg Physical Exam Narrative: Very pleasant cooperative female Left-sided facial droop She has no movement at all of right arm and right leg Sensations intact Hyperreflexia of right leg She is awake and alert She is not disoriented Sounds are at the bedside Pupils are symmetrical Able to protect her airways Satting well on room air S1, S2 Sinus bradycardia Looks dehydrated No abdominal tenderness Data : 08/14/21 10:13 08/14/21 10:13 A&P Assessment and plan (1) Cerebrovascular accident: Status: Acute (2) Hypokalemia: Status: Acute Plan Acute CVA CT head unremarkable I do not think MRI head would have any merit at this point, she is not a tPA candidate NIH 11 Lives alone and unsafe to return home like that, will request PT/OT/ST She will need short-term rehab Sounds are agreeable They would like her to go to a rehab near [place] start aspirin, high-dose statins and Plavix Hypertensive urgency: Allow permissive hypertension would treat blood pressure if greater than 180/90 mmHg, would use lisinopril, as needed hydralazine, add low-dose amlodipine Check hemoglobin A1c panel, lipid panel, no need to repeat labs for tomorrow Hypokalemia: Repleted Attestations Medical Necessity Statement*: Anticipating placement to rehab she might need more than 2 midnight Time Spent in Patient Care: 40mins Coding Level of Care Code 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
[2021-08-14] MEDS: hyDRALAzine 20 mg/mL INJ 1 mL 10 MG IVP (14:37)
--- NOTE | 2021-08-14 14:42 | PC.NURSE ---
PER DR. GROVES PT CAN BE TRANSPORTED AFTER SYSTOLIC BP IS LESS 200 AND DIAYSTOLIC IS LESS THAN 100. PT BP IS 197/93. PT IS IN NAD. PT DENIES ANY CO AT THIS TIME.
[2021-08-14] MEDS: potassium chloride oral liq 20 mEq/15 mL UDC 40 MEQ PO (15:47)
[2021-08-14] MEDS: amlodipine 10 mg Tablet PO (15:56)
[2021-08-14] MEDS: atorvastatin 40 mg Tablet PO (20:19)
[2021-08-15] VITALS (8 sets, daily range): BP systolic 158–169; BP diastolic 67–79; PULSE 69–80; RESP 16–19; TEMP 36.6–37.3; O2SAT 91–95
[2021-08-15 05:12] LABS: Estmated Average Glucose 97
[2021-08-15 05:17] LABS: Blood Urea Nitrogen 10 mg/dL (8-23); Calcium 7.9 mg/dL (8.5-10.5); Carbon Dioxide 28 mmol/L (22-29); Chloride 103 mmol/L (98-107); Creatinine Clr Calc Pharmacy 50.3942; Glucose 102 mg/dL (65-115); Osmolality Calculated 291 mOsm/kg (285-295); Sodium 141 mmol/L (136-145)
[2021-08-15 05:19] LABS: Chol HDL Ratio 4.47 mg/dL (0.0-4.40); Cholesterol 161 mg/dL (0-200); HDL Cholesterol 36 mg/dL (60-100); LDL Cholesterol Calculated 109 mg/dL (50-129); LDL HDL Ratio 3.03 RATIO (0.00-3.22); Triglycerides 79 mg/dL (0-150)
--- NOTE | 2021-08-15 06:00 | USCV_ITS ---
Scotty Brianne Age: 86 Gender: F : 1935 Exam Date: 08/15/2021 07:51 Ordering Phys: Barrington Kolb DO Technologist: Chencho Gonzáles Exam Location: [facility] – [place] Indication: cva BP: 132 / 75 HR: 74 Rhythm: Sinus Technical Quality: Adequate MEASUREMENTS (Male / Female) Normal Values 2D ECHO LV Diastolic Diameter PLAX 3.6 cm 4.2 - 5.9 / 3.9 - 5.3 cm LV Systolic Diameter PLAX 2.6 cm IVS Diastolic Thickness 1.1 cm 0.6 - 1.0 / 0.6 - 0.9 cm IVS Systolic Thickness 1.5 cm LVPW Diastolic Thickness 1.2 cm 0.6 - 1.0 / 0.6 - 0.9 cm LVPW Systolic Thickness 1.6 cm LVOT Diameter 2.0 cm LV Ejection Fraction 2D Teich 54.8 % LV Ejection Fraction MOD 2C 56.4 % LV Ejection Fraction 2C AL 59.2 % LA Diameter 2.8 cm Aorta at Sinotubular Diameter 2.9 cm IVC Diameter 1.5 cm M-MODE LV Diastolic Diameter MM 4.9 cm 4.2 - 5.9 / 3.9 - 5.3 cm LV Systolic Diameter MM 3.4 cm LV Ejection Fraction MM Teich 59.9 % IVS Diastolic Thickness MM 0.9 cm 0.6 - 1.0 / 0.6 - 0.9 cm IVS Systolic Thickness MM 1.3 cm LVPW Diastolic Thickness MM 1.2 cm 0.6 - 1.0 / 0.6 - 0.9 cm LVPW Systolic Thickness MM 1.6 cm RV Diastolic Diameter MM 1.0 cm Aortic Annulus Diameter 3.4 cm LA Ao Ratio MM 0.9 MV E Point Septal Separation 1.0 cm DOPPLER AV Peak Velocity 151.0 cm/s LVOT Peak Velocity 102.0 cm/s AV Area Cont Eq vti 2.3 cm squared AV Area Cont Eq pk 2.2 cm squared MV Area PHT 5.0 cm squared Mitral E to A Ratio 0.4 MV E' Velocity 25.5 cm/s Mitral E to MV E' Ratio 7.3 Mitral E to LV E' Lateral Ratio 6.6 Mitral E to LV E' Septal Ratio 8.5 TR Peak Velocity 135.7 cm/s TR Peak Gradient 7.4 mmHg PV Peak Velocity 126.0 cm/s FINDINGS Left Ventricle Normal left ventricular size. LV systolic function is normal with EF of 55-60%. No regional wall motion abnormalities. Grade 1 diastolic dysfunction Right Ventricle The right ventricle is normal in size and function. Right Atrium The right atrium is normal in size. Left Atrium The left atrium is normal in size Mitral Valve Structurally normal mitral valve without significant stenosis or prolapse. There is no mitral regurgitation. Aortic Valve Structurally normal aortic valve without significant sclerosis or stenosis. There is no aortic regurgitation. Tricuspid Valve Structurally normal tricuspid valve without significant stenosis. Trace tricuspid regurgitation. Insufficient TR jet to calculate RVSP Pulmonic Valve Not well visualized Pericardium Normal pericardium without effusion. Aorta Normal ascending aorta dimension. IVC CONCLUSIONS LV systolic function is normal with EF of 55-60% Grade 1 diastolic dysfunction Trace tricuspid regurgitation No comparison studies are available Randall Carballo MD (Electronically Signed) Final Date: 15 Aug 2021 10:30 S
--- NOTE | 2021-08-15 06:00 | USR_ITS ---
PROCEDURE INFORMATION: Exam: US Duplex Bilateral Extracranial Arteries, Carotid Arteries Exam date and time: 08/15/2021 8:06 AM Age: 86 years old Clinical indication: Alteration of consciousness; Transient alteration of awareness; Additional info: CVA TECHNIQUE: Imaging protocol: Real-time Duplex ultrasound scan of the bilateral carotid and vertebral arteries combining santiago scale, color Doppler and spectral waveform analysis. Bilateral exam. Exam focused on the carotid arteries. COMPARISON: CT head wo con* [id number] 08/14/2021 9:59 AM FINDINGS: There is moderate atherosclerotic plaque in the internal carotid arteries, bilaterally. RIGHT: The peak systolic velocity within the proximal common carotid artery is 99 cm/s. The peak systolic velocity within the mid common carotid artery is 99 cm/s. The peak systolic velocity within the distal common carotid artery is 93 cm/s. The peak systolic velocity within the proximal internal carotid artery is 79 cm/s. The peak systolic velocity within the mid internal carotid artery is 105 cm/s. The peak systolic velocity within the distal internal carotid artery is 111 cm/s. The peak systolic velocity within the vertebral artery is 46 cm/s. Anterograde blood flow is seen in the vertebral artery. The ICA to CCA ratio on the right is 1.1. LEFT: The peak systolic velocity within the proximal common carotid artery is 98 cm/s. The peak systolic velocity within the mid common carotid artery is 117 cm/s. The peak systolic velocity within the distal common carotid artery is 98 cm/s. The peak systolic velocity within the proximal internal carotid artery is 110 cm/s. The peak systolic velocity within the mid internal carotid artery is 104 cm/s. The peak systolic velocity within the distal internal carotid artery is 126 cm/s. The peak systolic velocity within the vertebral artery is 54 cm/s. Anterograde blood flow is seen in the vertebral artery. The ICA to CCA ratio on the left is 1.1. US/CV carotid duplex BI* [id number] IMPRESSION: Elevated flow velocity within the distal left internal carotid artery that could reflect underlying stenosis between 50 and 69%; however, the ICA to CCA ratio is normal. Consider CTA to better characterize. REFERENCES: SRU CRITERIA. The degree of internal carotid artery stenosis is based on criteria defined by the Society of Radiologists in Ultrasound (SRU). Normal is no stenosis. Mild is less than 50% stenosis. Moderate is 50-69% stenosis. Severe is greater than 69% stenosis to near occlusion. Near occlusion is a markedly narrowed lumen. Total occlusion is no detectable patent lumen.
[2021-08-15 06:41] LABS: Glucose Point of Care 108 mg/dL (70-110)
[2021-08-15] MEDS: lisinopril 10 mg Tablet PO (09:04)
[2021-08-15] MEDS: clopidogrel 75 mg Tablet PO (09:04)
[2021-08-15] MEDS: aspirin 81 mg EC Tablet PO (09:04)
[2021-08-15] MEDS: amlodipine 10 mg Tablet PO (09:04)
--- NOTE | 2021-08-15 10:49 | P.PN_ITS ---
Subjective Subjective: Awaiting OT and ST No overnight events Patient stating that last night she had. Diet she did not choke on food Awaiting placement Vitals/I&O/Wt Last Vital Signs Temp 98.6 F 08/15/21 07:42 Pulse 80 08/15/21 08:00 Resp 16 08/15/21 07:42 BP 167/76 08/15/21 07:42 Pulse Ox 92 08/15/21 08:00 08/14/21 08/15/21 08/15/21 22:59 06:59 14:59 Intake Total 360 / 460 600 / 1060 360 / 360 Output Total 0 / 0 Balance 360 / 460 600 / 1060 360 / 360 Weight last 48 hrs Weight 63.503 kg Physical Exam Narrative: Supine very pleasant cooperative female Left-sided facial droop Right-sided hemiplegia Hyperreflexia of right leg S1, S2 Hypertensive Afebrile Saturating on room air Abdomen soft Awake and alert oriented to time place and person Data : 08/14/21 10:13 08/15/21 04:15 A&P Assessment and plan (1) Cerebrovascular accident: Status: Acute (2) Hypokalemia: Status: Acute Plan Acute CVA Dense right-sided hemiplegia with left-sided facial drooping and slurred speech Patient is awaiting speech therapy and OT Appreciate PT recommendations She is awaiting short-term rehab placement Son was counseled to not let Brianne live alone Daughter is planning to come in today as well golf manager is aware Hypokalemia: Related to hydrochlorothiazide, potassium repleted Permissive hypertension I would only treat herwith IV medications if pressure if it is above 180/90 mmHg Full code Dysphagia diet Check potassium only tomorrow Attestations Medical Necessity Statement*: 30mins Time Spent in Patient Care: Continue medical management Coding Level of Care Code 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
--- NOTE | 2021-08-15 10:53 | CTR_ITS ---
PROCEDURE INFORMATION: Exam: CT Angiography Head With Contrast, Arteriography Exam date and time: 08/15/2021 2:09 PM Age: 86 years old Clinical indication: Speech disturbance and weakness; Prior surgery; Surgery date: 6+ months; Surgery type: Carotid endart; Patient HX: C/O slurred speech and R sdie weakness since yesterday am; Additional info: CVA TECHNIQUE: Imaging protocol: Computed tomography angiography of the head with contrast. Exam focused on the arteries. 3D rendering (Not supervised by radiologist): MIP and/or 3D reconstructed images were created by the technologist. Radiation optimization: All CT scans at this facility use at least one of these dose optimization techniques: automated exposure control; mA and/or kV adjustment per patient size (includes targeted exams where dose is matched to clinical indication); or iterative reconstruction. Contrast material: OMNI 300; Contrast volume: 50 ml; Contrast route: INTRAVENOUS (IV); COMPARISON: CT head wo con* [id number] 08/14/2021 9:59 AM RADIATION DOSE METRICS: Total DLP (mGy-cm): 1189.71 FINDINGS: ANTERIOR CIRCULATION: Right internal carotid artery: Unremarkable. Intracranial segment is patent with no significant stenosis. No aneurysm. Right middle cerebral artery: Unremarkable. No occlusion or significant stenosis. No aneurysm. Right anterior cerebral artery: Unremarkable. No occlusion or significant stenosis. No aneurysm. Left internal carotid artery: Nonocclusive thrombus seen within the cavernous portion of the left internal carotid artery as best noted on series 3, images 91-92 and series 603, image 59. No aneurysm. Left middle cerebral artery: Unremarkable. No occlusion or significant stenosis. No aneurysm. Left anterior cerebral artery: Unremarkable. No occlusion or significant stenosis. No aneurysm. POSTERIOR CIRCULATION: Right vertebral artery: Unremarkable. No occlusion or significant stenosis. No aneurysm. Left vertebral artery: Unremarkable. No occlusion or significant stenosis. No aneurysm. Basilar artery: Unremarkable. No occlusion or significant stenosis. No aneurysm. Right posterior cerebral artery: Unremarkable. No occlusion or significant stenosis. No aneurysm. Left posterior cerebral artery: Unremarkable. No occlusion or significant stenosis. No aneurysm. Brain: No definite mass, mass effect, or midline shift. Cerebral ventricles: No ventriculomegaly. Bones/joints: Unremarkable. No acute fracture. Soft tissues: Unremarkable. VADIM at 2:50 PM CDT on 08/15/2021. The findings were acknowledged and understood. PROCEDURE INFORMATION: Exam: CT Angiography Neck With Contrast Exam date and time: 08/15/2021 2:09 PM Age: 86 years old Clinical indication: Speech disturbance and weakness; Prior surgery; Surgery date: 6+ months; Surgery type: Carotid endart; Patient HX: C/O slurred speech and R sdie weakness since yesterday am; Additional info: CVA TECHNIQUE: Imaging protocol: Computed tomography angiography of the neck with contrast. 3D rendering (Not supervised by radiologist): MIP and/or 3D reconstructed images were created by the technologist. Radiation optimization: All CT scans at this facility use at least one of these dose optimization techniques: automated exposure control; mA and/or kV adjustment per patient size (includes targeted exams where dose is matched to clinical indication); or iterative reconstruction. Contrast material: OMNI 300; Contrast volume: 50 ml; Contrast route: INTRAVENOUS (IV); COMPARISON: US CV carotid duplex BI* [id number] 08/15/2021 8:06 AM RADIATION DOSE METRICS: Total DLP (mGy-cm): 1189.71 FINDINGS: Right common carotid artery: No stenosis. No dissection or occlusion. Right internal carotid artery: Post endarterectomy. 50% stenosis/narrowing of the origin of the internal carotid artery at the endarterectomy site. No dissection or occlusion. Right external carotid artery: No occlusion or stenosis of the origin. Left common carotid artery: No stenosis. No dissection or occlusion. Left internal carotid artery: Post endarterectomy. No stenosis of the extracranial segment. No dissection or occlusion. Left external carotid artery: No occlusion or stenosis of the origin. Right vertebral artery: No stenosis. No dissection or occlusion. Left vertebral artery: No stenosis. No dissection or occlusion. Thyroid: 5 mm nodule noted in the right thyroid lobe. There is also a 7 mm nodule in the left thyroid lobe. Soft tissues: Normal. No significant soft tissue swelling. Bones/joints: No acute fracture. 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 THIS REPORT CONTAINS FINDINGS THAT MAY BE CRITICAL TO PATIENT CARE. The findings were verbally communicated via telephone conference with ABIGAIL, IMPRESSION: Bilateral carotid endarterectomy. Moderate stenosis at the origin of the right internal carotid artery. COMMENTS: Consistent with the [employer]'s Incidental Findings Committee white paper (J Am Andrea Radiol 2015): In patients aged 35 years and older with an incidental thyroid nodule equal to or greater than 1.[address], MRI or extrathyroidal US, further evaluation with dedicated thyroid US is recommended for patients with normal life expectancy and without comorbidities. For smaller nodules without suspicious features, no further evaluation or follow up is recommended. REFERENCES: NASCET CRITERIA. The degree of internal carotid artery stenosis is based on NASCET criteria. Normal is no stenosis. Mild is less than 50% stenosis. Moderate is 50-69% stenosis. Severe is 70% to 99% stenosis. Total occlusion is no detectable patent lumen.
[2021-08-15] MEDS: potassium chloride oral liq 20 mEq/15 mL UDC 40 MEQ PO (11:05)
[2021-08-15 11:59] LABS: Glucose Point of Care 119 mg/dL (70-110)
[2021-08-15] MEDS: nicotine 7 mg Patch 1 PATCH TRANSDERMA (12:57)
[2021-08-15] MEDS: iohexol 300 mg/mL 50 mL Btl IV (14:12)
[2021-08-15 16:52] LABS: Glucose Point of Care 101 mg/dL (70-110)
[2021-08-15 20:17] LABS: Glucose Point of Care 131 mg/dL (70-110)
[2021-08-15] MEDS: atorvastatin 40 mg Tablet PO (20:20)
[2021-08-16] VITALS (9 sets, daily range): BP systolic 143–167; BP diastolic 72–87; PULSE 68–81; RESP 16–20; TEMP 36.6–36.9; O2SAT 90–97
[2021-08-16 05:30] LABS: Potassium 2.9 mmol/L (3.5-5.1)
[2021-08-16] MEDS: potassium chloride oral liq 20 mEq/15 mL UDC 40 MEQ PO ×2 (05:48→07:03)
[2021-08-16] MEDS: enoxaparin 60 mg/0.6 mL Syringe SUBCUT ×2 (08:15→18:32)
[2021-08-16] MEDS: amlodipine 10 mg Tablet PO (08:16)
[2021-08-16] MEDS: clopidogrel 75 mg Tablet PO (08:16)
[2021-08-16] MEDS: aspirin 81 mg EC Tablet PO (08:17)
[2021-08-16] MEDS: lisinopril 10 mg Tablet PO (08:17)
[2021-08-16] MEDS: lidocaine 1% 5 ML in potassium chloride premix 100 ML 25 ML IV ×2 (08:19→12:30)
--- NOTE | 2021-08-16 09:25 | PM.PN ---
Subjective Subjective: 86-year-old female who carries history of TIA, carotid artery disease right-sided carotid endarterectomy 2013 presented 24-hour after her development of symptoms to the hospital with chief complaint of left-sided facial droop and right-sided weakness Echo unremarkable, CT head unremarkable, CTA head and neck showed left internal carotid thrombus which is nonocclusive within the cavernous portion of carotid artery. She presented 24 hours after her presentation, did not pursue embolectomy. Echo did not show any thrombus. She has remained in sinus rhythm. She is an active smoker, hypertensive. Lives alone. Awaiting care home placement, I have started her on therapeutic dose of Lovenox, will need Eliquis at the time of discharge, sons agree with the plan. No overnight events, permissive hypertension Afebrile She is on modified diet Vitals/I&O/Wt Last Vital Signs Temp 97.9 F 08/16/21 07:14 Pulse 70 08/16/21 08:00 Resp 18 08/16/21 07:14 BP 157/73 08/16/21 07:14 Pulse Ox 95 08/16/21 08:00 08/15/21 08/16/21 08/16/21 22:59 06:59 14:59 Intake Total 60 / 540 210 / 750 Balance 60 / 540 210 / 750 Weight last 48 hrs Weight 63.503 kg Physical Exam Narrative: Very pleasant cooperative female Left-sided facial droop Right-sided weakness Brief history at the bedside No overnight events S1, S2 Saturating well on room air He is awake and alert no signs of confusion No abdominal pain Data : 08/14/21 10:13 08/16/21 04:35 A&P Assessment and plan (1) Cerebrovascular accident: Status: Acute (2) Acute cerebrovascular accident (CVA) due to occlusion of left carotid artery: Status: Acute (3) Hypokalemia: Status: Acute Plan 86-year female presented with left-sided facial droop and right-sided weakness, lives alone, awaiting placement, left internal carotid thrombus Patient was not a tPA candidate nor a candidate for thromboembolectomy Acute ischemic CVA Therapeutic Lovenox started along Plavix, discontinue aspirin, continue statins Risk factors include previous history of TIA, right-sided carotid endarterectomy Active smoker Awaiting care home placement She is on modified dysphagia diet Echo unremarkable, I have not requested MRI head as it will not change my management plan, will request echo with bubble study , consider transesophageal echo for left ventricular thrombus? No signs of A. fib Would recommend discharge to care home on event monitor, therapeutic dose of Eliquis Permissive hypertension: Systolic blood pressure target 1 40-1 60s millimeters mercury Hypokalemia: Potassium repleted Check magnesium level. Modified dysphagia diet DVT prophylaxis sufficed with therapeutic Lovenox We will request venous Doppler Patient is full code Attestations Medical Necessity Statement*: Awaiting placement Time Spent in Patient Care: 35mins Coding Level of Care Code Acute Horse Race Timer for Chg Fwd Diagnoses Cerebrovascular accident I63.9 Acute cerebrovascular accident (CVA) due to occlusion of left carotid artery I63.232 Hypokalemia E87.6
--- NOTE | 2021-08-16 09:32 | USR_ITS ---
PROCEDURE INFORMATION: Exam: US Duplex Lower Extremity Veins, Bilateral Exam date and time: 08/16/2021 10:40 AM Age: 86 years old Clinical indication: Edema, localized; Lower extremity, bilateral; Additional info: Dvt TECHNIQUE: Imaging protocol: Real-time Duplex ultrasound of the bilateral extremities with 2-D santiago scale, color Doppler flow and spectral waveform analysis with image documentation. Complete exam focused on the bilateral lower extremity veins. COMPARISON: No relevant prior studies available. FINDINGS: Right deep veins: Unremarkable. The common femoral, femoral, proximal profunda femoral and popliteal veins are patent without thrombus. Normal Doppler waveforms. Normal compressibility and/or augmentation response. Right superficial veins: Saphenofemoral junction is patent without thrombus. Left deep veins: Unremarkable. The common femoral, femoral, proximal profunda femoral and popliteal veins are patent without thrombus. Normal Doppler waveforms. Normal compressibility and/or augmentation response. Left superficial veins: Saphenofemoral junction is patent without thrombus. Soft tissues: Unremarkable. US/CV venous duplex [facility] [id number] IMPRESSION: No evidence of deep vein thrombosis.
--- NOTE | 2021-08-16 09:32 | USCV_ITS ---
Brianne Fajardo Age: 86 Gender: F : 1935 Exam Date: 08/16/2021 10:52 Ordering Phys: Anna Bailey MD Technologist: Chencho Gonzáles Exam Location: [facility] [place] Indication: cva BP: / HR: Rhythm: Sinus Technical Quality: Good MEASUREMENTS (Male / Female) Normal Values FINDINGS Left Ventricle Right Ventricle Right Atrium Left Atrium Mitral Valve Aortic Valve Tricuspid Valve Pulmonic Valve Pericardium Aorta IVC CONCLUSIONS There is a limited echocardiogram performed to do bubble study. LV systolic function is normal with EF 55 to 60%. Bubble study is negative for intracardiac shunting. Randall Carballo MD (Electronically Signed) Final Date: 16 Aug 2021 18:49 S
[2021-08-16] MEDS: atorvastatin 40 mg Tablet PO (20:20)
[2021-08-17] VITALS (11 sets, daily range): BP systolic 131–162; BP diastolic 72–84; PULSE 66–74; RESP 16–22; TEMP 36.5–37.1; O2SAT 90–95
--- NOTE | 2021-08-17 04:34 | NUR.SHIFT ---
Alert and oriented with stable vs. No neurologic changes noted, oriented x4 with no complaints of discomfort. Right arm and leg flaccid with right facial droop. Speech slurred at times with extended conversation, patient gets tired. Bed bath provided to patient, incontinent, skin and radha care done, linens changed. IV in left wrist area flushed and intact.
[2021-08-17 04:52] LABS: Basophils % 0.6 %; Eosinophils # 0.2 10^3/uL (0.0-0.8); Eosinophils % 2.9 %; Hematocrit 38.4 % (37.0-47.0); Hemoglobin 12.1 g/dL (11.5-15.3); Lymphocytes # 1.1 10^3/uL (0.8-4.8); Lymphocytes % 16.2 %; Mean Corpuscular HGB Conc 31.5 g/dL (30.0-36.0); Mean Corpuscular Hemoglobin 30.5 pg (28.0-34.0); Mean Corpuscular Volume 96.7 fl (81-99); Mean Platelet Volume 9.9 fL (7.4-10.4); Monocytes # 0.5 10^3/uL (0.2-0.9); Monocytes % 7.4 %; Neutrophils % 72.6 %; Nucleated Red Blood Cells % 0 %; Platelet Count 152 10^3/cmm (130-400); Red Blood Count 3.97 10^6/uL (4.1-5.3); Red Cell Distribution Width 13.2 % (12.1-15.1); White Blood Count 6.6 10^3/uL (4.0-10.0)
[2021-08-17 05:06] LABS: Anion Gap 13.4 (5-19); Blood Urea Nitrogen 12 mg/dL (8-23); Calcium 8.1 mg/dL (8.5-10.5); Carbon Dioxide 24 mmol/L (22-29); Chloride 108 mmol/L (98-107); Glucose 94 mg/dL (65-115); Magnesium 1.8 mg/dL (1.7-2.3); Osmolality Calculated 292 mOsm/kg (285-295); Potassium 4.4 mmol/L (3.5-5.1); Sodium 141 mmol/L (136-145)
[2021-08-17 05:08] LABS: Creatinine Clr Calc Pharmacy 50.3942
[2021-08-17] MEDS: enoxaparin 60 mg/0.6 mL Syringe SUBCUT (06:31)
--- NOTE | 2021-08-17 07:41 | PC.SOCIAL ---
IMM Update Pg. 2 of IMM updated and reviewed with patient, who verbalized understanding. Copy provided.
[2021-08-17] MEDS: nicotine 7 mg Patch 1 PATCH TRANSDERMA (10:02)
[2021-08-17] MEDS: amlodipine 10 mg Tablet PO (10:02)
[2021-08-17] MEDS: lisinopril 10 mg Tablet PO (10:02)
[2021-08-17] MEDS: clopidogrel 75 mg Tablet PO (10:02)
--- NOTE | 2021-08-17 10:08 | PC.SLP ---
Therapist spoke with patient and family member. No concerns with patient's swallowing were reported. Family member did ask about nectar thickened liquids; therefore, education was provided. The therapist provided education regarding s/s of aspiration, and what to look for. Therapist encouraged patient/family member to inform nursing of any concerns.
--- NOTE | 2021-08-17 12:40 | PM.PN ---
Subjective Subjective: Patient was seen and examined this morning, working well with physical therapy, no acute events overnight. Medications: Medication Review Details: Generic Name Dose Route Start Last Admin Trade Name Mary Jane PRN Reason Stop Dose Admin Amlodipine Besylat e 10 mg 08/14/21 15:50 08/17/21 10:02 Amlodipine 10 Mg Tablet PO 10 mg DAILY EULALIA Administration Atorvastatin Calci um 40 mg 08/14/21 21:00 08/16/21 20:20 Atorvastatin 40 Mg Tablet PO 40 mg BEDTIME EULALIA Administration Clopidogrel Bisulf ate 75 mg 08/15/21 09:00 08/17/21 10:02 Clopidogrel 75 M g Tablet PO 75 mg DAILY EULALIA Administration Enoxaparin Sodium 60 mg 08/16/21 07:30 08/17/21 06:31 Enoxaparin 60 Mg /0.6 Ml Syringe SUBCUT 60 mg Q12H EULALIA Administration Lisinopril 10 mg 08/15/21 09:00 08/17/21 10:02 Lisinopril 10 Mg Tablet PO 10 mg DAILY EULALIA Administration Nicotine 1 patch 08/15/21 14:00 08/17/21 10:02 Nicotine 7 Mg Pa tc TRANSDERMA 1 patch DAILY EULALIA Administration Vitals/I&O/Wt Last Vital Signs Temp 98.7 F 08/17/21 12:00 Pulse 71 08/17/21 12:00 Resp 16 08/17/21 12:00 BP 138/84 08/17/21 12:00 Pulse Ox 90 08/17/21 12:00 08/16/21 08/17/21 08/17/21 22:59 06:59 14:59 Intake Total 345 / 809.583 240 / 240 Balance 345 / 809.583 240 / 240 Physical Exam Const: COMMON NORMALS: patient oriented x3 HENMT: COMMON NORMALS: normocephalic and atraumatic HEAD & SCALP: normocephalic and atraumatic Chest: CHEST: Yes Symmetrical chest wall rise Resp: COMMON NORMALS: clear to auscultation bilaterally EFFORT & INSPECTION: Yes symmetric chest movement AUSCULTATION: clear to auscultation bilaterally Cardio: COMMON NORMALS: regular rate, regular rhythm, S1 normal heart sound present, S2 normal heart sound present, No gallops present (Cardio), No murmurs present (Cardio), No rub (Cardio) and Peripheral pulses 2+ throughout RATE: regular rate RHYTHM: regular rhythm HEART SOUNDS: S1 normal heart sound present and S2 normal heart sound present PERIPHERAL PULSES: Peripheral pulses 2+ throughout GI: COMMON NORMALS: Normal to inspection, nondistended, normoactive bowel sounds present, Soft to palpation, non-tender, No hepatosplenomegaly present and no masses AUSCULTATION: Yes normoactive bowel sounds PALPATION: Yes Soft to palpation and Yes No hepatosplenomegaly present RECTAL EXAM: deferred Extremity: COMMON NORMALS: no clubbing, cyanosis or edema and no pedal edema NARRATIVE EXTREMITY EXAM: Right-sided weakness with left facial droop Neuro: COMMON NORMALS: patient oriented x3 Data : 08/17/21 04:22 08/17/21 04:22 A&P Assessment and plan (1) Cerebrovascular accident: Status: Acute (2) Acute cerebrovascular accident (CVA) due to occlusion of left carotid artery: Status: Acute (3) Hypokalemia: Status: Acute Plan 86-year female presented with past medical history of hypertension TIA chronic smoker presented with left-sided facial droop and right-sided weakness. Patient was not a tPA candidate nor a candidate for thromboembolectomy on admission. Acute ischemic CVA: CT head wo con:Numerous bilateral lacunar infarcts in the basal ganglia. CT angio headneck: Right internal carotid artery: Post endarterectomy. 50% stenosis/narrowing of the origin of the internal carotid artery at the endarterectomy site. No dissection or occlusion. CV carotid duplex BI: 2D Echo : LV systolic function is normal with EF of 55-60%,?Grade 1 diastolic dysfunction Trace tricuspid regurgitation. Negative bubble study. PT OT on board; Continue telemetry monitoring SPL evaluation done:on modified dysphagia diet Continue aspirin Plavix statin. Patient will need neurology as well as cardiology follow-up as an outpatient. We will discharge patient on event monitor for 3 weeks. [facility] #Hypertension: Continue lisinopril #History of TIA #DVT PPX : On Lovenox #CODE STATUS: Full code #Disposition : Awaiting group home Placement. Attestations Medical Necessity Statement*: [facility]wait[facility]. Coding Level of Care Code Acute Sales Representative [employer] Rope for Sherry Masters Diagnoses Cerebrovascular accident I63.9 Acute cerebrovascular accident (CVA) due to occlusion of left carotid artery I63.232 Hypokalemia E87.6
--- NOTE | 2021-08-17 13:52 | PC.SLP ---
Patient was given a variety of OMEs to increase strength/function of the tongue/lips. The patient required verbal and visual cues when completing the OMEs. The therapist also provided the patient with dysarthria strategies (over-articulation, practicing multisyllabic words, using longer pauses). The the therapist wrote these exercises/strategies down for the patient. The patient's son was present in the room.
[2021-08-17] MEDS: atorvastatin 40 mg Tablet PO (20:22)
[2021-08-18 03:27] VITALS: BP 151/72; PULSE 66; RESP 18; TEMP 36.8; O2SAT 92
[2021-08-18 05:26] LABS: Basophils # 0.1 10^3/uL (0.0-0.1); Basophils % 0.9 %; Eosinophils # 0.2 10^3/uL (0.0-0.8); Eosinophils % 3.1 %; Hematocrit 37.6 % (37.0-47.0); Hemoglobin 11.9 g/dL (11.5-15.3); Lymphocytes # 1.3 10^3/uL (0.8-4.8); Lymphocytes % 19.2 %; Mean Corpuscular HGB Conc 31.6 g/dL (30.0-36.0); Mean Corpuscular Hemoglobin 30.2 pg (28.0-34.0); Mean Corpuscular Volume 95.4 fl (81-99); Mean Platelet Volume 10.4 fL (7.4-10.4); Monocytes # 0.5 10^3/uL (0.2-0.9); Monocytes % 7.2 %; Neutrophils # 4.72 10^3/uL (1.8-7.7); Neutrophils % 69.3 %; Nucleated Red Blood Cells % 0 %; Platelet Count 173 10^3/cmm (130-400); Red Blood Count 3.94 10^6/uL (4.1-5.3); Red Cell Distribution Width 13.2 % (12.1-15.1); White Blood Count 6.8 10^3/uL (4.0-10.0)
[2021-08-18 05:55] LABS: Anion Gap 12.6 (5-19); Blood Urea Nitrogen 17 mg/dL (8-23); Calcium 8.5 mg/dL (8.5-10.5); Carbon Dioxide 23 mmol/L (22-29); Chloride 106 mmol/L (98-107); Glucose 83 mg/dL (65-115); Osmolality Calculated 287 mOsm/kg (285-295); Potassium 3.6 mmol/L (3.5-5.1); Sodium 138 mmol/L (136-145)
[2021-08-18 05:58] LABS: Creatinine Clr Calc Pharmacy 50.3942
[2021-08-18 06:00] VITALS: PULSE 68
[2021-08-18 08:00] VITALS: BP 167/74; PULSE 62; RESP 15; O2SAT 93
[2021-08-18] MEDS: nicotine 7 mg Patch 1 PATCH TRANSDERMA (09:51)
[2021-08-18] MEDS: lisinopril 10 mg Tablet PO (09:51)
[2021-08-18] MEDS: clopidogrel 75 mg Tablet PO (09:51)
[2021-08-18] MEDS: aspirin 81 mg EC Tablet PO (09:51)
[2021-08-18] MEDS: enoxaparin 40 mg/0.4 mL Syringe SUBCUT (09:51)
[2021-08-18] MEDS: amlodipine 10 mg Tablet PO (09:51)
--- NOTE | 2021-08-18 10:17 | P.DS_ITS ---
Discharge Providers Date of Admission: 08/14/21 14:17 Date of Discharge: August 18, 2021 Attending Provider at Admission: nAna Bailey MD Attending Provider at Discharge: Daryl Ro MD Diagnoses at Discharge Discharge Diagnosis (1) Cerebrovascular accident: Status: Acute (2) Acute cerebrovascular accident (CVA) due to occlusion of left carotid artery: Status: Acute (3) Hypokalemia: Status: Acute Reason for Visit Reason for Visit: STROKE/ SLURRED SPEECH/ WEAKNESS Hospital Course Hospital Course 86-year female presented with past medical history of hypertension TIA chronic smoker presented with left-sided facial droop and right-sided weakness. C was admitted for the management of acute ischemic CVA: Patient was not a tPA candidate nor a candidate for thromboembolectomy on admission.CT head wo con:Numerous bilateral lacunar infarcts in the basal ganglia. CT angio headneck: Right internal carotid artery: Post endarterectomy. 50% stenosis/narrowing of the origin of the internal carotid artery at the endarterectomy site. No dissection or occlusion. 2D Echo : LV systolic function is normal with EF of 55-60%,?Grade 1 diastolic dysfunction Trace tricuspid regurgitation. Negative bubble study. She was kept on Plavix, therapeutic anticoagulation with Lovenox, starting, permissive hypertension, therapeutic anticoagulation has been discontinued on discharge, given age and high fall risk, she is being discharged on aspirin Plavix statin. She is also being discharged on 3 weeks event monitor. During the hospital stay routine stroke care was exercised (PT/OT, SPL. ) She was kept on telemetry monitoring: Which failed to show any significant arrhythmia. For hypertension: Cardizem hydrochlorothiazide has been resumed, dose of metoprolol succinate has been decreased to 25 mg p.o. daily from 100 MG.She will follow with primary care physician neurology as well as cardiology as an outpatient. Overall patient has responded well to above medical management and she is being discharged in stable condition to rehab for further recovery. Physical Exam Const: COMMON NORMALS: patient oriented x3 HENMT: COMMON NORMALS: normocephalic and atraumatic HEAD & SCALP: normocephalic and atraumatic Chest: CHEST: Yes Symmetrical chest wall rise Resp: COMMON NORMALS: clear to auscultation bilaterally EFFORT & INSPECTION: Yes symmetric chest movement AUSCULTATION: clear to auscultation bilaterally Cardio: COMMON NORMALS: regular rate, regular rhythm, S1 normal heart sound present, S2 normal heart sound present, No gallops present (Cardio), No murmurs present (Cardio), No rub (Cardio) and Peripheral pulses 2+ throughout RATE: regular rate RHYTHM: regular rhythm HEART SOUNDS: S1 normal heart sound present and S2 normal heart sound present PERIPHERAL PULSES: Peripheral pulses 2+ throughout GI: COMMON NORMALS: Normal to inspection, nondistended, normoactive bowel sounds present, Soft to palpation, non-tender, No hepatosplenomegaly present and no masses AUSCULTATION: Yes normoactive bowel sounds PALPATION: Yes Soft to palpation and Yes No hepatosplenomegaly present RECTAL EXAM: deferred Extremity: COMMON NORMALS: no clubbing, cyanosis or edema and no pedal edema NARRATIVE EXTREMITY EXAM: Right-sided weakness with left facial droop Neuro: COMMON NORMALS: patient oriented x3 Discharge Data Studies Completed and Pending Completed Studies During Hospitalization Category Date Time Status CT head wo con* [id number] Stat Cat Scan 08/14/21 09:43 Completed CTA head neck [CT angio headneck* [id number]] Routine Cat Scan 08/15/21 10:53 Completed XR chest 1V portable [id number] Stat Exams 08/14/21 09:43 Completed CV carotid duplex BI* [id number] Routine Ultrasound 08/15/21 06:00 [place] [id number] Routine Ultrasound 08/16/21 09:32 Completed CV. echo complete* [id number] Routine Ultrasound 08/15/21 06:00 Completed CV. echo lmt wo/w bubble [id number] Routine Ultrasound 08/16/21 09:32 Completed Pending at discharge Category Date Time Status COVID [SARS Covid-2 Antigen] Routine Lab 08/18/21 07:41 Uncollected Radiology Impressions Chest X-Ray 08/14/21 09:43 Impression: Atherosclerosis. Head CT 08/14/21 09:43 IMPRESSION: 1. No acute intracranial hemorrhage or edema. 2. 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 3. Mild ventriculomegaly. Notified Dr. Kolb at 08/14/2021 10:19 AM. Carotid Doppler Study 08/15/21 06:00 IMPRESSION: Elevated flow velocity within the distal left internal carotid artery that could reflect underlying stenosis between 50 and 69%; however, the ICA to CCA ratio is normal. Consider CTA to better characterize. REFERENCES: SRU CRITERIA. The degree of internal carotid artery stenosis is based on criteria defined by the Society of Radiologists in Ultrasound (SRU). Normal is no stenosis. Mild is less than 50% stenosis. Moderate is 50-69% stenosis. Severe is greater than 69% stenosis to near occlusion. Near occlusion is a markedly narrowed lumen. Total occlusion is no detectable patent lumen. 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 THIS REPORT CONTAINS FINDINGS THAT MAY BE CRITICAL TO PATIENT CARE. The findings were verbally communicated via telephone conference with ABIGAIL, IMPRESSION: Bilateral carotid endarterectomy. Moderate stenosis at the origin of the right internal carotid artery. COMMENTS: Consistent with the [employer]'s Incidental Findings Committee white paper (J Am Andrea Radiol 2015): In patients aged 35 years and older with an incidental thyroid nodule equal to or greater than 1.[address], MRI or extrathyroidal US, further evaluation with dedicated thyroid US is recommended for patients with normal life expectancy and without comorbidities. For smaller nodules without suspicious features, no further evaluation or follow up is recommended. REFERENCES: NASCET CRITERIA. The degree of internal carotid artery stenosis is based on NASCET criteria. Normal is no stenosis. Mild is less than 50% stenosis. Moderate is 50-69% stenosis. Severe is 70% to 99% stenosis. Total occlusion is no detectable patent lumen. Venous Duplex 08/16/21 09:32 IMPRESSION: No evidence of deep vein thrombosis. Laboratory Results WBC 6.8 10^3/uL (4.0-10.0) 08/18/21 04:11 RBC 3.94 10^6/uL (4.1-5.3) L 08/18/21 04:11 Hgb 11.9 g/dL (11.5-15.3) 08/18/21 04:11 Hct 37.6 % (37.0-47.0) 08/18/21 04:11 MCV 95.4 fl (81-99) 08/18/21 04:11 MCH 30.2 pg (28.0-34.0) 08/18/21 04:11 MCHC 31.6 g/dL (30.0-36.0) 08/18/21 04:11 RDW 13.2 % (12.1-15.1) 08/18/21 04:11 Plt Count 173 10^3/cmm (130-400) 08/18/21 04:11 MPV 10.4 fL (7.4-10.4) 08/18/21 04:11 Neut % (Auto) 69.3 % 08/18/21 04:11 Lymph % (Auto) 19.2 % 08/18/21 04:11 [place] % (Auto) 7.2 % 08/18/21 04:11 Eos % (Auto) 3.1 % 08/18/21 04:11 Baso % (Auto) 0.9 % 08/18/21 04:11 Neut # (Auto) 4.72 10^3/uL (1.8-7.7) 08/18/21 04:11 Lymph # (Auto) 1.3 10^3/uL (0.8-4.8) 08/18/21 04:11 [place] # (Auto) 0.5 10^3/uL (0.2-0.9) 08/18/21 04:11 Eos # (Auto) 0.2 10^3/uL (0.0-0.8) 08/18/21 04:11 Baso # (Auto) 0.1 10^3/uL (0.0-0.1) 08/18/21 04:11 Nucleated RBC % (auto) 0 % 08/18/21 04:11 Nucleated RBCs # 0.0 /100WBC 08/18/21 04:11 PT 14.50 SECONDS (12.1-14.9) 08/14/21 10:13 INR 1.09 (0.8-1.2) 08/14/21 10:13 APTT 33.7 SECONDS (23.9-36.7) 08/14/21 10:13 Sodium 138 mmol/L (136-145) 08/18/21 04:11 Potassium 3.6 mmol/L (3.5-5.1) 08/18/21 04:11 Chloride 106 mmol/L (98-107) 08/18/21 04:11 Carbon Dioxide 23 mmol/L (22-29) 08/18/21 04:11 Anion Gap 12.6 (5-19) 08/18/21 04:11 BUN 17 mg/dL (8-23) 08/18/21 04:11 Creatinine 0.4 mg/dL (0.5-0.9) L 08/18/21 04:11 GFR Calculation Not Reportable 08/18/21 04:11 Glucose 83 mg/dL (65-115) 08/18/21 04:11 POC Glucose 131 mg/dL (70-110) H 08/15/21 20:10 Estimat Average Glucose 97 08/15/21 04:15 Hemoglobin A1c 5.0 % (4.0-6.0) 08/15/21 04:15 Calculated Osmolality 287 mOsm/kg (285-295) 08/18/21 04:11 Calcium 8.5 mg/dL (8.5-10.5) 08/18/21 04:11 Magnesium 1.8 mg/dL (1.7-2.3) 08/17/21 04:22 Total Bilirubin 0.5 mg/dL (0.15-1.2) 08/14/21 10:13 AST 15 U/L (0-32) 08/14/21 10:13 ALT 10 U/L (0-33) 08/14/21 10:13 Alkaline Phosphatase 82 IU/L (35-105) 08/14/21 10:13 Troponin T Baseline 20 ng/L (0-10) H 08/14/21 10:13 Troponin T 120 Minute 19.04 ng/L (0-10) H 08/14/21 12:13 Delta Troponin T -0.96 ABS# (0-10) L 08/14/21 12:13 Total Protein 6.5 g/dL (6.6-8.7) L 08/14/21 10:13 Albumin 3.5 g/dL (3.5-5.2) 08/14/21 10:13 Globulin 3.0 g/dL (1.3-4.6) 08/14/21 10:13 Triglycerides 79 mg/dL (0-150) 08/15/21 04:15 Cholesterol 161 mg/dL (0-200) 08/15/21 04:15 LDL Cholesterol, Calc 109 mg/dL (50-129) 08/15/21 04:15 HDL Cholesterol 36 mg/dL (60-100) L 08/15/21 04:15 LDL/HDL Ratio 3.03 RATIO (0.00-3.22) 08/15/21 04:15 Cholesterol/HDL Ratio 4.47 mg/dL (0.0-4.40) H 08/15/21 04:15 Urine Color Yellow (Yellow) 08/14/21 11:08 Urine Appearance Hazy (CLEAR) A 08/14/21 11:08 Urine pH 6 (5-7) 08/14/21 11:08 Ur Specific [place] 1.015 (1.005-1.030) 08/14/21 11:08 Urine Protein Neg (Negative) 08/14/21 11:08 Urine Glucose (UA) Norm (Normal) 08/14/21 11:08 Urine Ketones Negative (Negative) 08/14/21 11:08 Urine Blood Neg (Negative) 08/14/21 11:08 Urine Nitrate Negative (Negative) 08/14/21 11:08 Urine Bilirubin Neg (Negative) 08/14/21 11:08 Urine Urobilinogen Norm mg/dL (Negative) 08/14/21 11:08 Ur Leukocyte Esterase Negative (Negative) 08/14/21 11:08 Vitals Last Vital Signs Temp 98.2 F 08/18/21 03:27 Pulse 62 08/18/21 08:00 Resp 15 08/18/21 08:00 BP 167/74 08/18/21 08:00 Pulse Ox 93 08/18/21 08:00 Discharge Plan Discharge Patient Disposition: Xfer [facility] Condition: Stable Prescriptions: New atorvastatin 40 mg Tablet 40 mg PO BEDTIME 30 Days Qty: 30 3RF clopidogrel 75 mg Tablet 75 mg PO DAILY 30 Days Qty: 30 3RF aspirin 81 mg Tablet,Delayed Release (Dr/Ec) 81 mg PO DAILY 30 Days Qty: 30 3RF nicotine 7 mg/24 hr Patch 24 Hour 1 patch transdermal DAILY 30 Days Qty: 30 0RF Continued sertraline 100 mg tablet 100 mg PO DAILY 30 Days Qty: 30 0RF potassium chloride 20 mEq tablet,ER particles/crystals 20 meq PO DAILY 30 Days Qty: 30 0RF diltiazem HCl 120 mg capsule,extended release 24hr 120 mg PO DAILY 30 Days Qty: 30 3RF hydrochlorothiazide 12.5 mg tablet 12.5 mg PO DAILY 30 Days Qty: 30 3RF Changed metoprolol succinate 100 mg tablet extended release 24 hr 25 mg PO DAILY 30 Days Qty: 30 3RF Discharge Orders: Discharge Order (Routine); Ordered 08/18/21 Ordered By: Daryl Ro Other Ambulatory Orders: MCT/Event Monitor 21 Days (Routine) Timeframe: 3 Weeks Facility: [facility] - Location: Radiology Ordered By: Daryl Ro Referrals: [facility] [Outside] Nena Mcgraw MD [Physician] - 1 month Antonio Hu FNP [Nurse Practitioner] - 1 week Discharge Diet: Soft Mechanical Patient Instructions: Aspirin (By mouth), Nicotine (Absorbed through the skin), Atorvastatin (By mouth), Clopidogrel (By mouth), Opioid Safety Discharge Attestations Time Spent in Discharge Care*: less than 30 min Quality Metrics Clinical Quality Measures [ No reported AMI, CVA or VTE this stay] Coding Level of Care Code Acute Chg FW DC note Diagnoses Cerebrovascular accident I63.9 Acute cerebrovascular accident (CVA) due to occlusion of left carotid artery I63.232 Hypokalemia E87.6
[2021-08-18 11:45] VITALS: BP 135/75; PULSE 66; RESP 17; TEMP 37.1; O2SAT 93
[2021-08-18 12:34] LABS: SARS Covid-2 Antigen Negative (Negative)
--- NOTE | 2021-08-18 13:46 | PC.NURSE ---
THIS NURSE HAS ATTEMPTED TO CALL REPORT TO [facility] SEVERAL TIMES. NO ONE ANSWERED. THIS NURSE FINALLY GOT THROUGH TO THE MANAGEMENT LECTURER AND SHE SAID SHE WILL HAVE A NURSE CALL BACK. PT IS DRESSED AND READY TO GO. IV HAS BEEN REMOVED. PT TOLERATED WELL. SON IS AT THE BEDSIDE AND IS AWARE OF THE SITUATION. A RIDE HAS BEEN SET UP FOR THE PT AND THEY WILL BE HERE BETWEEN [id number]. WILL CONTINUE TO MONITOR PT. WILL ALSO CONTINUE TO TRY AND CALL REPORT.
--- NOTE | 2021-08-18 13:56 | PC.NURSE ---
REPORT CALLED TO LADARIUS Stuart LPN AT [facility].
--- NOTE | 2021-08-18 14:55 | PC.OT ---
OT TREATMENT HELD TODAY DUE TO SCHEDULED D/C TO SNF
[2021-08-18 15:15] VITALS: BP 135/75; PULSE 66; RESP 17; TEMP 37.1; O2SAT 93
== END 2021-08-18 15:15 | disposition skilled nursing facility (03) | DRG 65 ==
LOC: ER 11:36 → MEDSURG 12:59
PROVIDERS: Registered Nurse; Admitting Provider Internal Medicine; Emergency Provider Family Medicine; Visit Provider Internal Medicine
DX: I63.032 Cerebral infarction due to thrombosis of left carotid artery (principal); G81.91 Hemiplegia, unspecified affecting right dominant side; R47.1 Dysarthria and anarthria; R29.716 NIHSS score 16; Z86.73 Personal history of transient ischemic attack (TIA), and cerebral infarction without residual deficits; I10 Essential (primary) hypertension; F17.210 Nicotine dependence, cigarettes, uncomplicated; E87.6 Hypokalemia
CPT/HCPCS: 36415; 36416; 70450; 70496; 70498; 71045; 80048; 80053; 80061; 81003; 82962; 83036; 83735; 84132; 84484; 85025; 85610; 85730; 87426; 92507; 92523; 92526; 92610; 93005; 93306; 93880; 93970; 96365; 96366; 96372; 96375; 97110; 97162; 97165; 97530; 99285; C8924; J0360; J1650; J3480; Q9967

== ENCOUNTER 2023-06-29 10:18 | Emergency (ER) | payer MEDICARE, MEDICAID, SELFPAY ==
[2023-06-29 10:21] VITALS: BP 173/102; PULSE 53; RESP 18; O2SAT 97; BMI 20.9
--- NOTE | 2023-06-29 10:23 | CT_ITS ---
WS: [id number] Examination: CT head wo con* [id number] Reason for Exam: ams Date: June 29, 2023 Comparison: August 14, 2021 DLP: 1034.[address] scans at [facility] use at least one of these dose optimization techniques: automated e xposure control; mA and/or kV adjustment per patient size (includes targeted exams where dose is matc hed to clinical indication); or iterative reconstruction. Findings: There is a dominant right frontal, bilateral ethmoid, and bilateral maxillary sinus disease. There is age-appropriate volume loss. There is no midline shift. The ventricles are dilated similar t o the previous study. Ischemic microvascular changes are identified. Lacunar infarcts are noted dominant on the left. There is no intracranial hemorrhage or hematoma. Impression: There is no intracranial hemorrhage or hematoma. The ventricles are enlarged but unchanged. Prominent white matter changes and lacunar infarcts are ag ain noted.
--- NOTE | 2023-06-29 10:23 | XR_ITS ---
WS: [id number] Examination: XR chest 1V portable [id number] Reason for Exam: ams Date: June 29, 2023 Comparison: August 14, 2021 Findings: The heart is enlarged. The mediastinum is not widened There is no pulmonary edema or large effusion. Mild left basilar opacity is noted. This may represent atelectasis or infiltrate. Old left chest and rib deformities are noted. Impression: There is cardiomegaly without failure. There is minimal left basilar atelectasis or infiltrate noted.
[2023-06-29 10:27] VITALS: BP 173/102; PULSE 53; RESP 18; O2SAT 97
--- NOTE | 2023-06-29 10:37 | ED_ITS ---
HPI - Altered Mental Status 2 General: Chief Complaint: Altered Mental Status Stated Complaint: AMS Time Seen by Provider: 06/29/23 10:18 Source: patient and EMS Mode of arrival: EMS Limitations: altered mental status History of Present Illness: 88-year-old female is here from shelter she had a history of stroke he states that when she woke up this morning she was very confused and lethargic they are not sure when her last known well was. Patient is actually back to her baseline she is awake answering most of my questions she is oriented to self and place but not time but that is her baseline. She has no complaints at this time. Review of Systems 2 General: Reports: ROS unobtainable due to mental status PFSH ED 2 PFSH: Medical History Acute cerebrovascular accident (CVA) due to occlusion of left carotid artery Smoker TIA (transient ischemic attack) HTN (hypertension) Hypokalemia Cerebrovascular accident Surgical History H/O carotid endarterectomy Family History Denies family history of Clotting disorder Cancer Social History Smoking and tobacco/nicotine status: current every day tobacco/nicotine user cigarettes Alcohol intake: never Substance/Drug Use: never Lives independently: Yes Physical Exam 2 Const: COMMON NORMALS: no acute distress and healthy appearing EXAM LIMITATIONS: altered mental status ORIENTATION/CONSCIOUSNESS: Yes awake, Yes oriented to person and Yes oriented to place; not oriented to time HENMT: COMMON NORMALS: normocephalic and atraumatic HEAD & SCALP: n ormocephalic and atraumatic Neck/C-Spine: COMMON NORMALS: full ROM and supple Chest: COMMONS NORMALS: normal inspection of the chest Resp: COMMON NORMALS: normal respiratory effort, No retractions, No use of accessory muscles and clear to auscultation bilaterally AUSCULTATION: clear to auscultation bilaterally Cardio: COMMON NORMALS: regular rate, regular rhythm and No murmurs present (Cardio) RATE: regular rate RHYTHM: regular rhythm GI: COMMON NORMALS: Normal to inspection, nondistended, normoactive bowel sounds present, Soft to palpation, non-tender and no masses PALPATION: Yes Soft to palpation Extremity: COMMON NORMALS: normal to inspection and full ROM Neuro: COMMON NORMALS: moves all extremities and no focal motor deficits S ENSORIUM/ORIENTATION: Yes oriented to person, Yes oriented to place and No oriented to time Psych: COMMON NORMALS: Normal thought process present and cooperative T HOUGHT PROCESS: Normal thought process present Skin: COMMON NORMALS: no rashes or lesions noted and no wounds GENERAL SKIN EXAM: no rashes or lesions noted Course 2 Vital Signs: Vital signs: Vital Signs Pulse Rate 67 06/29/23 12:46 Respiratory Rate 18 06/29/23 12:46 Blood Pressure 179/100 06/29/23 12:46 Pulse Oximetry 97 06/29/23 12:46 Oxygen Delivery Me thod Room Air 06/29/23 12:46 MDM - Altered Mental Status Medical Decision Making Patient presents here as slight confusion she is at her baseline currently she does have a UTI we will give her IV antibiotics I feel she is stable for discharge home white count blood pressure here has been normal she is in no pain here. Will prescribe her Keflex she is return if worsening. Medical Records I reviewed the patient's medical records. Lab Data I reviewed the patient's lab results. 06/29/23 10:35 06/29/23 10:35 Laboratory Results WBC 6.43 10^3/uL (3.29-11.43) 06/29/23 10:35 RBC 4.02 10^6/uL (3.85-5.65) 06/29/23 10:35 Hgb 12.50 g/dL (11.27-16.99) 06/29/23 10:35 Hct 38.2 % (36-47) 06/29/23 10:35 MCV 95.0 fl (85-98) 06/29/23 10:35 MCH 31.1 pg (27-33) 06/29/23 10:35 MCHC 32.7 g/dL (30-55) 06/29/23 10:35 RDW 13.2 % (12.1-15.1) 06/29/23 10:35 Plt Count 180 10^3/cmm (157-399) 06/29/23 10:35 MPV 9.4 fL (7.4-10.4) 06/29/23 10:35 Neut % (Auto) 57.0 % 06/29/23 10:35 Lymph % (Auto) 28.8 % 06/29/23 10:35 [place] % (Auto) 8.7 % 06/29/23 10:35 Eos % (Auto) 4.7 % 06/29/23 10:35 Baso % (Auto) 0.8 % 06/29/23 10:35 Neut # (Auto) 3.67 10^3/uL (1.8-7.7) 06/29/23 10:35 Lymph # (Auto) 1.9 10^3/uL (0.8-4.8) 06/29/23 10:35 [place] # (Auto) 0.6 10^3/uL (0.2-0.9) 06/29/23 10:35 Eos # (Auto) 0.3 10^3/uL (0.0-0.8) 06/29/23 10:35 Baso # (Auto) 0.1 10^3/uL (0.0-0.1) 06/29/23 10:35 Nucleated RBC % (auto) 0 % 06/29/23 10:35 Nucleated RBCs # 0.0 /100WBC 06/29/23 10:35 PT 13.00 SECONDS (12.1-14.9) 06/29/23 10:35 INR 0.95 (0.8-1.2) 06/29/23 10:35 Sodium 141 mmol/L (136-145) 06/29/23 10:35 Potassium 4.2 mmol/L (3.5-5.1) 06/29/23 10:35 Chloride 105 mmol/L (98-107) 06/29/23 10:35 Carbon Dioxide 29 mmol/L (22-29) 06/29/23 10:35 Anion Gap 11.2 (5-19) 06/29/23 10:35 BUN 12 mg/dL (8-23) 06/29/23 10:35 Creatinine 0.4 mg/dL (0.5-0.9) L 06/29/23 10:35 GFR Calculation Not Reportable 06/29/23 10:35 Glucose 95 mg/dL (65-115) 06/29/23 10:35 Calculated Osmolality 292 mOsm/kg (285-295) 06/29/23 10:35 Calcium 9.2 mg/dL (8.5-10.5) 06/29/23 10:35 Magnesium 1.9 mg/dL (1.7-2.3) 06/29/23 10:35 Total Bilirubin 0.6 mg/dL (0.15-1.2) 06/29/23 10:35 AST 22 U/L (0-32) 06/29/23 10:35 ALT 28 U/L (0-33) 06/29/23 10:35 Alkaline Phosphatase 121 U/L (35-105) H 06/29/23 10:35 Total Protein 7.3 g/dL (6.6-8.7) 06/29/23 10:35 Albumin 3.9 g/dL (3.5-5.2) 06/29/23 10:35 Globulin 3.4 g/dL (1.3-4.6) 06/29/23 10:35 Lipase 30 U/L (13-60) 06/29/23 10:35 TSH 1.87 uIU/mL (0.27-4.20) 06/29/23 10:35 Urine Color Yellow (Yellow) 06/29/23 11:55 Urine Appearance Cloudy (CLEAR) A 06/29/23 11:55 Urine pH 7 (5-7) 06/29/23 11:[address] 1.010 (1.005-1.030) 06/29/23 11:55 Urine Protein Neg (Negative) 06/29/23 11:55 Urine Glucose (UA) Norm (Normal) 06/29/23 11:55 Urine Ketones Negative (Negative) 06/29/23 11:55 Urine Blood 2+ (Negative) H 06/29/23 11:55 Urine Nitrate Negative (Negative) 06/29/23 11:55 Urine Bilirubin Neg (Negative) 06/29/23 11:55 Urine Urobilinogen Norm mg/dL (Negative) 06/29/23 11:55 Ur Leukocyte Esterase 2+ (Negative) H 06/29/23 11:55 Urine RBC 5-10 /hpf (0-2) H 06/29/23 11:55 Urine WBC 25-40 /hpf (0-5) H 06/29/23 11:55 Ur Squamous Epith Cells 5-10 /hpf (0-5) H 06/29/23 11:55 Ur Transition Epith Cell 0-4 /hpf 06/29/23 11:55 Amorphous Sediment 1+ /hpf 06/29/23 11:55 Urine Bacteria 3+ /hpf (NONE) H 06/29/23 11:55 Hyaline Casts 0-4 /lpf H 06/29/23 11:55 Urine Mucus 1+ /hpf 06/29/23 11:55 All radiology interpretation(s) finalized by discharge EKG Data EKG 1: I personally reviewed and interpreted this EKG as follows: EKG interpretation date: 06/29/23 EKG interpretation time: 11:00 Interpretation: afib hr [address] elevation qrs 98 qtc 456 Discharge Plan Discharge Patient Disposition: Home Clinical Impression: Acute cystitis Condition: Stable Prescriptions: New cephalexin 500 mg capsule 500 mg PO TID 7 Days Qty: 21 0RF No Action potassium chloride 20 mEq tablet,ER particles/crystals 20 meq PO DAILY 30 Days Qty: 30 0RF atorvastatin 40 mg Tablet 40 mg PO BEDTIME 30 Days Qty: 30 3RF Senna Lax 8.6 mg Tablet 8.6 mg PO DAILY PRN (Reason: Constipation) acetaminophen 325 mg Tablet 650 mg PO QID PRN (Reason: Pain) amlodipine 2.5 mg tablet 2.5 mg PO DAILY lorazepam 0.5 mg tablet 0.5 mg PO DAILY Milk of Magnesia 400 mg/5 mL Suspension 30 ml PO DAILY PRN (Reason: Constipation) bisacodyl 10 mg Suppository 10 mg HI DAILY PRN (Reason: Constipation) Fleet Enema 19-7 gram/118 mL Enema 118 ml HI DAILY PRN (Reason: Constipation) metoprolol succinate 25 mg tablet extended release 24 hr 25 mg PO DAILY nystatin 100,000 unit/gram powder 1 applic TOPICAL BID Miralax 17 gram/dose Powder 4 g PO DAILY PRN (Reason: Constipation) sertraline 50 mg tablet 50 mg PO DAILY Discharge Orders: Discharge ED (Routine); Ordered 06/29/23 Ordered By: Carolynn Grimes Discharge Diet: Advance as tolerated Discharge Activity: Resume usual activity Patient Instructions: Urinary Tract Infection in Women (ED) Coding Level of Care Code ED Manufacturing Accountant for Sherry Masters
[2023-06-29 10:43] LABS: Basophils # 0.1 10^3/uL (0.0-0.1); Basophils % 0.8 %; Eosinophils # 0.3 10^3/uL (0.0-0.8); Eosinophils % 4.7 %; Hematocrit 38.2 % (36-47); Lymphocytes # 1.9 10^3/uL (0.8-4.8); Lymphocytes % 28.8 %; Mean Corpuscular HGB Conc 32.7 g/dL (30-55); Mean Corpuscular Hemoglobin 31.1 pg (27-33); Mean Platelet Volume 9.4 fL (7.4-10.4); Monocytes # 0.6 10^3/uL (0.2-0.9); Monocytes % 8.7 %; Neutrophils # 3.67 10^3/uL (1.8-7.7); Nucleated Red Blood Cells % 0 %; Platelet Count 180 10^3/cmm (157-399); Red Blood Count 4.02 10^6/uL (3.85-5.65); Red Cell Distribution Width 13.2 % (12.1-15.1); White Blood Count 6.43 10^3/uL (3.29-11.43)
--- NOTE | 2023-06-29 10:44 | PC.PHAR ---
medications verified using mar from [facility] and talking to gilmar (nursing professor at facility) gilmar sts asp, clopidogril, hctz, and diltiazem were disc back in july of last year
[2023-06-29 11:01] LABS: INR 0.95 (0.8-1.2)
[2023-06-29 11:13] LABS: Alanine Aminotransferase 28 U/L (0-33); Albumin Level 3.9 g/dL (3.5-5.2); Alkaline Phosphatase 121 U/L (35-105); Anion Gap 11.2 (5-19); Aspartate Amino Transferase 22 U/L (0-32); Blood Urea Nitrogen 12 mg/dL (8-23); Calcium 9.2 mg/dL (8.5-10.5); Carbon Dioxide 29 mmol/L (22-29); Chloride 105 mmol/L (98-107); Creatinine Clr Calc Pharmacy 47.1485; Globulin 3.4 g/dL (1.3-4.6); Glucose 95 mg/dL (65-115); Lipase 30 U/L (13-60); Magnesium 1.9 mg/dL (1.7-2.3); Osmolality Calculated 292 mOsm/kg (285-295); Potassium 4.2 mmol/L (3.5-5.1); Sodium 141 mmol/L (136-145); Thyroid Stimulating Hormone 1.87 uIU/mL (0.27-4.20); Total Bilirubin 0.6 mg/dL (0.15-1.2); Total Protein 7.3 g/dL (6.6-8.7)
[2023-06-29 12:08] LABS: Add Urine Microscopic? YES; Bilirubin Urine Neg (Negative); Blood Urine 2+ (Negative); Glucose Urine UA Norm (Normal); Ketones Urine Negative (Negative); Leukocyte Esterase Urine 2+ (Negative); Nitrate Urine Negative (Negative); Protein Urine Neg (Negative); Urine Appearance Cloudy (CLEAR); Urine Color Yellow (Yellow); Urobilinogen Urine Norm (Negative); pH Urine 7 (5-7)
[2023-06-29 12:18] LABS: Amorphous Sediment Urine 1+ /hpf; Bacteria Urine 3+ /hpf; Hyaline Casts Urine 0-4 /lpf; Mucus Urine 1+ /hpf; Transitional Epi Cells Urine 0-4 /hpf; WBC Urine 25-40 /hpf (0-5)
[2023-06-29 12:19] LABS: Add Urine Culture? Yes
[2023-06-29 12:46] VITALS: BP 179/100; PULSE 67; RESP 18; O2SAT 97
[2023-06-29] MEDS: cefTRIAXone 1,000 MG in sodium chloride 0.9% (plus) 50 ML 100 MG IV (12:50)
== END 2023-06-29 14:39 | disposition home or self-care (01) ==
PROVIDERS: Emergency Provider Emergency Medicine
DX: N30.00 Acute cystitis without hematuria (principal); Z86.73 Personal history of transient ischemic attack (TIA), and cerebral infarction without residual deficits; I10 Essential (primary) hypertension; F17.210 Nicotine dependence, cigarettes, uncomplicated
CPT/HCPCS: 36415; 70450; 71045; 80053; 81001; 83690; 83735; 84443; 85025; 85610; 87077; 87086; 87186; 96365; 99285; J0696